=== PATIENT | male | born 1940 | race Caucasian/White ===

== ENCOUNTER 2016-10-16 23:37 | Inpatient (IN) | payer MEDICARE, OTHER ==
[~2016-10-16] VITALS: Ht 170.2 cm; Wt 50.4 kg
[~2016-10-16 23:37] MED LIST: CHOL200025 PO; COU5 PO; ESCI10TA PO; METH500T47 PO; OXYC-176 PO; TAM4 PO; TIOT18CA IH; WARF4TAB2 PO
[2016-10-17] VITALS (11 sets, daily range): BP systolic 85–105; BP diastolic 42–59; PULSE 70–94; RESP 16–20; O2SAT 91–97
--- NOTE | 2016-10-17 02:08 | NUR ---
Admission Pt admitted via transport team from [facility]. Pt able to walk but weak and has had several falls recently. Tele placed on pt, currently at SR 76. Partial bed bath given, pt soiled with urine. In white brief currently. Several abrasions noted. Small open area on coccyx. Camoseptine applied.
[2016-10-17] MEDS ORDERED: Polyethylene Glycol (PEG) 17 Gm Powder PO PRN (02:35)
[2016-10-17] MEDS ORDERED: Ondansetron 2 mg/mL 2 mL Inj IVPUSH PRN (02:35)
[2016-10-17] MEDS ORDERED: Alum-Mag Hydrox-Simeth 30 mL Suspension PO PRN (02:35)
[2016-10-17 03:06] LABS: Mean Corpuscular Hemoglobin 34.4 pg (27.0-35.0); Mean Corpuscular Volume 101.5 fL (81-100); Platelet Count 131 bil/L (150-400)
[2016-10-17] MEDS ORDERED: cefTRIAXone Inj 2,000 MG in Dextrose 5% Minibag Plus 50 ML IV ONE (03:20)
[2016-10-17 03:26] LABS: BASOPHILS % (AUTO) 0 % (0-3); EOSINOPHILS % (AUTO) 0 % (0-5); MONOCYTES % (AUTO) 2 % (4-12); NEUTROPHILS % (AUTO) 82 % (40-74)
[2016-10-17 03:49] LABS: Magnesium 1.7 mg/dL (1.6-2.6); Phosphorus 3.6 mg/dL (2.5-4.9)
[2016-10-17] MEDS: 0.9% Sodium Chloride 1,000 ML IV SCH ×3 (03:49→14:53)
--- NOTE | 2016-10-17 04:35 | PCM.HPMED ---
Subjective Date of Service Oct 17, 2016 Primary Provider: Admitting Physician: Rosaura Fang DO Primary Care Physician: Sarthak Rehman MD Attending Physician: Rosaura Fang DO Admit Status: From the Emergency Department, [facility] Telemetry Chief Complaint: Dizziness History of Present Illness: Claude Vidal is a 76-year-old man with past medical history significant for BPH, COPD, history of nephrolithiasis with multiple lithotripsies, and depression who is transferred from [facility] with the diagnosis of sepsis. Upon presentation to [facility] patient no longer meets sepsis criteria. Unclear of initial criteria met at [facility] from their documentation. Although patient is alert and oriented 3 he is a poor historian and seems to be slightly confused. Unclear of the baseline is no family is at the bedside. was present at the bedside initially but only for a very short time per nursing. The following is the history is able to obtain from the patient. He states that he presented to [facility] due to falling at home. He states that he did not hit his head or lose consciousness and was not lying on the floor for a long period. Per nursing staff the corroborates this story. Patient states he has been falling more frequently. He ambulates without assistive devices. He believes the falls are due to feeling dizzy and unstable. His dizziness is worse with quick movements and from transitioning from the seated to standing position. He has attempted to drink more water thinking this may help his dizziness. Patient denies any fever , chills, nausea, vomiting, abdominal pain, dysuria, hematuria, increased frequency, diarrhea, constipation, shortness of breath, cough, chest pain, or other musculoskeletal discomforts. The patient is significantly malnourished and when questioned he states that he has not recently lost weight and feels that he is eating just fine although his primary care provider told him he should start drinking Ensure. He denies any history of cancer. He also denies any recent medication changes or sick contacts. Patient's initial vitals on presentation to [facility] was temperature of 98.9F, blood pressure 102/40, respiratory rate 22, pulse oximetry 100%. Initial labs revealed a lactic acid of 2.4, potassium 3.7, creatinine kinase 1305 troponin I of 0.430, and a white blood cell count of 17.3 with a neutrophil predominance. He was initially treated with IV fluids and Levaquin at [facility] and then transferred to our facility as they had no telemetry monitored beds available. Review of Systems: Comprehensive review of systems was conducted with the patient and found to be negative except as noted above in HPI. Allergies Coded Allergies: No Known Allergies (Verified Allergy, 06/18/13) Home Medications Lexapro 10 mg daily Tamsulosin ER 0.4 mg daily Spiriva Percocet 5-325 every 4 hours when necessary PMH Past medical history obtained from [facility] documents along with my own history as follows: BPH COPD Nephrolithiasis requiring lithotripsy PE Depression Surgical History Past medical history obtained from [facility] documents along with my own history as follows: Lithotripsy Right hemicolectomy (this was obtained from [facility] documents as patient denied during my encounter) Family History Patient states his family is healthy. One asked specifics patient repeats that his family is healthy. Social History Hx Alcohol Use: No Hx Substance Use: No Hx Tobacco Use: No Living Arrangement: with Family ( but uncertain if she is there consistently) Exam Vital Signs Vital Signs (First) Date Time Temp Pulse Resp B/P Pulse Ox O2 Delivery O2 Flow Rate FiO2 10/17/16 01:26 36.2 75 16 99/48 97 Room Air Exam General: Cachectic, frail man in no acute distress. HEENT: Temporal wasting. External ears without defect. Pupils equal, round, and reactive to light and accommodation. Pale conjunctiva, anicteric sclerae, moist conjunctivae, and no lid lag. Oropharynx free of erythema and cobble stoning with moist mucosa. Neck: Supple with full range of motion. No jugular venous distension. No bruits. No lymphadenopathy or thyromegaly. Cardiovascular: Regular rate and rhythm with no murmurs, rubs, or gallops appreciated Pulmonary: Faint coarseness in bilateral bases. Normal respiratory effort with no use of accessory muscles. Abdomen: Bowel tones present. Scaphoid, nontender, minimally hard to palpation. No hepatosplenomegaly or masses appreciated. Extremities: No clubbing, cyanosis, edema, or lymphadenopathy appreciated. Skin: Normal temperature, turgor, and texture; no rash, ulcers, or subcutaneous nodules appreciated. Neurological: Cranial nerves grossly intact. Normal muscle strength, tone, and bulk. Reflexes, coordination, and sensory function within normal limits. No known gait impairment. Psychiatric: Normal mood and affect. Alert and oriented to person, place, and time. Lab and Diagnostics Labs Test 10/17/16 03:00 White Blood Count 14.4th/mm3 (3.8-10.1) Red Blood Count 2.70mil/mm3 (4.40-5.80) Hemoglobin 9.3g/dL (13.8-17.2) Hematocrit 27.4% (41.0-50.0) Mean Corpuscular Volume 101.5fL (81-100) Mean Corpuscular Hemoglobin 34.4pg (27.0-35.0) Mean Corpuscular Hemoglobin Concent 33.9% (32.0-37.0) Red Cell Distribution Width 13.1% (12.3-15.4) Platelet Count 131bil/L (150-400) Neutrophils (%) (Auto) 82% (40-74) Lymphocytes (%) (Auto) 0% (14-46) Monocytes (%) (Auto) 2% (4-12) Eosinophils (%) (Auto) 0% (0-5) Basophils (%) (Auto) 0% (0-3) Band Neutrophils % 15% (1-5) Metamyelocytes % 1% (0-0) Hematology Comments Lactic Acid Level 1.5mmol/L (0.4-2.0) X-Rays, CTs and MRIs Imaging from [facility]: Head without contrast Impression: 1. No acute intracranial abnormality. 2. Mild chronic white matter small vessel ischemic changes and cerebral volume loss. Dictated by: Valentín Zheng M.D. on 10/16/16 at 2202 Chest 1 view Impression: 1. Chronic interstitial opacities redemonstrated without consolidation or other findings to suggest pneumonia. Dictated by: Valentín Zheng M.D. on 10/16/16 at 2204 12-lead ECG Normal sinus rhythm Assessment & Plan Claude Vidal is a 76-year-old man with past medical history significant for BPH, COPD, history of nephrolithiasis with multiple lithotripsies, and depression who is transferred from [facility] with the diagnosis of sepsis after a ground-level fall. Leukocytosis, present on admission, active. Etiology unclear. Patient denies any symptoms aside from dizziness and ground- level fall. - WBC 14.4 with 82% neutrophils in 15% bands. - Procalcitonin 3.60 and CRP 20.8. - Blood cultures obtained and pending. - Urine culture unable to obtain. Bladder scan revealed inadequate amount of fluid to collect. - MRSA screen pending. - CT chest, abdomen, pelvis pending. - Broad-spectrum antibiotics include vancomycin and cefepime. Patient received dose of Levaquin at [facility]. Acute kidney injury, present on admission, active. Per [facility]'s notes patient's baseline creatinine is around 1.1 and currently is 2.26. - Outside records should be requested for more detailed kidney function. - IV fluids initiated. - Renal ultrasound ordered. - Bladder scan pending. If adequate urine and patient unable to urinate will proceed with in and out catheter to obtain sample for urinalysis. rhabdomyolysis, present on admission, active. - Creatinine kinase at [facility] 1305 repeat here 3246. - IV fluids given at [facility] and continued at 150 ml/hr. With an additional 500 mL bolus. If patient tolerates bolus will continue with additional but unclear of patient's ejection fraction. Ground-level fall, present on admission, active. - Patient denies loss of consciousness or hitting his head. Per nursing corroborates the story. - Orthostatic blood pressure to be completed in the morning. - CT of the brain at [facility] showed no acute intracranial abnormality. Elevated troponin of unknown significance, present on admission, active. Troponin I drawn at [facility] was 0.40. Repeat troponin T was 0.131. - Unclear etiology as EKG is unremarkable and shows normal sinus rhythm with no ST changes and patient denies any cardiac symptoms. - Trending troponins every 6 hours. - Low threshold to initiate heparin drip. - Consider echocardiogram in the morning. Sepsis diagnosed at [facility], not present on admission, resolved. - Patient transferred from [facility] with a diagnosis of cyst persists. The specific criteria met is not clear from records. Patient did have a respiratory rate of 22 but no specific mention of altered mentation or systolic blood pressure less than 100. - IV fluids initiated at 150 ml/hr. - We will monitor for signs of hemodynamic instability. Malnutrition, present on admission, active. Patient denies any recent weight loss and states he has always been thin. left prior to my history and examination. - Social work will need to be contacted in the morning. Living situation may be inappropriate but unclear as I was unable to contact the personally. - Encourage oral intake. - Consider dietitian consultation. PRN Medications - Acetaminophen as needed for mild pain/fever/headache - Bowel regimen as needed - Antiemetic as needed Med rec to be completed by day team. Patient is admitted under inpatient status with expected length of stay greater than 2 midnights due to severity of presenting symptoms, risk of adverse event, and complexity of treatment plan. Pain Evaluation: Adequate Pain Control GI Prophylaxis: Not indicated VTE Prophylaxis: Sub-Q Enoxaparin, SCDs Resuscitation Status: CPR: Attempt Resuscitation Attending Statement The patient was seen and examined together with house staff on 10/17/2016 and I agree with the history, exam and plan as outlined in the note above. TAMIKO ALLAN DO Oct 17, 2016 01:44 Rosaura Fang DO Oct 17, 2016 06:31
[2016-10-17 04:38] LABS: TROPONIN T 0.131 ug/L (0.0-0.011)
[2016-10-17] MEDS ORDERED: 0.9% Sodium Chloride 500 ML IV ONE (04:50)
[2016-10-17] MEDS ORDERED: Vancomycin Inj 750 MG in 0.9% Sodium Chloride 250 ML IV ONE (05:30)
--- NOTE | 2016-10-17 06:24 | PCM.CONPHA ---
Subjective Date of Service: Oct 17, 2016 Requesting Provider: TAMIKO ALLAN DO Dizziness, recent ground level falls History of Present Illness transferred in from [facility] for management of sepsis Reason for Pharmacy Consult: Vancomycin Dosing Objective Assessment/Plan Assessment/Plan A/ - 76 y/o male transferred in from [facility] for management of sepsis; but no longer met sepsis criteria at the time of admission. - Received one dose of Levaquin at [facility]. Afebrile, WBC: 14.4; blood cultures, urine, MRSA screen are pending - Vancomycin and cefepime ordered for empirical coverage - Wt: 44.6kg, ht: 183cm, BMI: 13.3 kg/m2, SCr: 2.26 mg/dL (baseline of 1.1) , estimated clearance in teen - P/ - Give vancomycin 750mg iv once and a random trough ordered @0500 10/18. Following doses will be determined after lab result Pharmacy will continue to follow and make necessary adjustment Thank you for consulting clinical pharmacy in the care of this patient Harrison Pedraza Oct 17, 2016 06:24
[2016-10-17] MEDS ORDERED: CHOL400T30 PO (07:21)
[2016-10-17] MEDS ORDERED: ONDA4TAB6 PO (07:24)
[2016-10-17] MEDS ORDERED: Cefepime Inj 1,000 MG in Dextrose 5% Minibag Plus 50 ML IV SCH (08:30)
[2016-10-17] MEDS: Vancomycin Dose per Pharmacist XX SCH (08:30)
--- NOTE | 2016-10-17 08:48 | DRSVH ---
PROCEDURE: CT CHEST, ABDOMEN AND PELVIS WITHOUT CONTRAST ([id number]) INDICATIONS: elevated CK TECHNIQUE: After the administration of oral contrast, 5 mm thick sections acquired from the lung apices to the s ymphysis pubis. 5 mm thick coronal and sagittal reformats acquired, with additional 7 mm coronal MIP reformats through the lungs. For radiation dose reduction, the following was used: automated expos ure control, adjustment of mA and/or kV according to patient size. COMPARISON: CT KUB 07/18/2015, 05/27/2012, 09/29/2011; CT IVP 08/27/2010 FINDINGS: Image quality: Excellent. CHEST: Lungs and pleura: Upper lobe predominant centrilobular emphysema. Bilateral subpleural interstitial lung disease. Mild thickening along the right major fissure. Bibasilar atelectasis. Small bilateral p leural effusions. Pleural calcifications also noted bilaterally. No pneumothorax. Central and periph eral airways are patent are normal in caliber. Mediastinum: Heart size is normal. No pericardial effusion. No mediastinal adenopathy by CT size c riteria. Thoracic aorta and central pulmonary arteries are normal in size. Esophagus is normal in c aliber. Small hiatal hernia. Chest wall: No axillary or supraclavicular adenopathy by size criteria. Thyroid gland appears rosario l. ABDOMEN: Solid organs: Liver and spleen are normal in size. Gallbladder is well distended with no definitive calcification.. Pancreas is normal in contours, calcifications evident compatible with chronic panc reatitis. No adrenal nodules. Both kidneys show staghorn calculi and air in the superior portion of the collecting systems. Mild right hydronephrosis. Peritoneum and bowel: Small and large bowel loops are gas filled with considerable stool in the colo n, and normal wall thickness. Postoperative changes of right hemicolectomy. Appendix is absent. Trace free fluid, no pneumoperitoneum. Nodes and vessels: No retroperitoneal or mesenteric adenopathy by size criteria. Aorta and inferior vena cava are normal in size. Miscellaneous: No ventral hernias. PELVIS: Genitourinary: Bladder wall thickness is normal. There are linear calcifications within the posterio r bladder wall centrally and on the right. Prostate is enlarged and extends into the bladder base. Miscellaneous: No inguinal hernias or adenopathy. Bones: No suspicious bony lesions. Multiple old right-sided rib fractures. No vertebral body carlos karmen fractures. Probable aseptic necrosis in the left femoral head anteriorly. IMPRESSION: 1. Bilateral staghorn calculi, air in the collecting systems bilaterally suggestive of bilateral pyel itis in absence of recent instrumentation. Mild right hydronephrosis with no apparent obstructing xu culi. Calcifications in the posterior bladder wall have been present previously. No associated soft t issue mass is identified. 2. Pulmonary emphysema and bilateral lower lobe atelectasis/infiltrate with small pleural effusions, appearing new since prior exam and possibly representing pneumonia. 3. Incidental findings including: Chronic pancreatitis, postoperative changes partial bowel resection in the right hemiabdomen, atherosclerosis without aneurysm, small hiatal hernia, prostatic enlargeme nt, nonspecific calcifications in the urinary bladder wall, old posttraumatic changes in the right ri b cage and probable aseptic necrosis of the left hip. Findings are concordant with the preliminary report. Dictated by: Lucio Wilhelm M.D. on 10/17/2016 at 8:21 Approved by: Lucio Wilhelm M.D. on 10/17/2016 at 8:46
[2016-10-17 09:43] LABS: Mean Corpuscular Hemoglobin 34.3 pg (27.0-35.0)
[2016-10-17 09:47] LABS: Platelet Count 104 bil/L (150-400)
--- NOTE | 2016-10-17 09:51 | DRSVH ---
PROCEDURE: X-RAY CHEST ONE VIEW, PORTABLE ([id number]) INDICATIONS: SOB TECHNIQUE: One view of the chest was acquired. COMPARISON: 10/16/2016, 11/24/2015 FINDINGS: Surgical changes and devices: None. Lungs and pleura: No pleural effusions or pneumothorax. Mild interstitial infiltrate in the lower lo bes bilaterally, no focal consolidation. Appearance is slightly more prominent. There is pulmonary hy perexpansion suggesting COPD. Mediastinum: Mediastinal contours appear normal. Heart size is normal. Aortic calcifications. Bones and chest wall: No suspicious bony lesions. Several chronic appearing right-sided rib fracture deformities fifth through eighth ribs. Overlying soft tissues appear unremarkable. IMPRESSION: 1. Probable chronic obstructive pulmonary disease and interstitial infiltrate that is likely chronic but superimposed pneumonitis cannot be excluded. 2. Remote multiple right-sided rib fractures. Dictated by: Lucio Wilhelm M.D. on 10/17/2016 at 9:46 Approved by: Lucio Wilhelm M.D. on 10/17/2016 at 9:49
[2016-10-17 10:13] LABS: BASOPHILS % (AUTO) 0 % (0-3); EOSINOPHILS % (AUTO) 0 % (0-5); MONOCYTES % (AUTO) 3 % (4-12); NEUTROPHILS % (AUTO) 90 % (40-74)
[2016-10-17] MEDS: Heparin 5,000 Unit/mL Inj SUBQ SCH ×3 (10:23→23:42)
[2016-10-17] MEDS ORDERED: Magnesium Sulf 4 Gm/100 mL H2O 4 GM in IV Premix 1 EACH IV ONE (10:40)
[2016-10-17] MEDS ORDERED: Magnesium Sulf 2 Gm/50mL Water 2 GM in IV Premix 1 EACH IV ONE (10:40)
[2016-10-17] MEDS ORDERED: Potassium Chloride 20 mEq SR Tablet PO ONE ×2 (10:40)
[2016-10-17 11:53] LABS: APPEARANCE,URINE SLIGHTLY CLOUDY (CLEAR,HAZY); COLOR,URINE STRAW (YELLOW); PH,URINE 5.5 (5.0-8.0)
[2016-10-17 11:54] LABS: OCCULT BLOOD,URINE LARGE (NEGATIVE); UROBILINOGEN,URINE NORMAL (NORMAL)
--- NOTE | 2016-10-17 13:25 | CONS ---
[address] [address] CONSULTATION REPORT PATIENT: JERI NORWOOD : 1940 MR#: [id number] ADMIT: 10/17/2016 JOB ID: [id number] DATE OF SERVICE: 10/17/[address] Alva for this timely consult. REASON FOR CONSULTATION: Sepsis in an elderly cachectic gentleman. HISTORY OF PRESENT ILLNESS: The patient is a 76-year-old gentleman in chronically ill health. He is a little spare in his history of the present illness in that he provides little in the way of details but basically he has been growing weaker and weaker and losing more and more weight month by month. It is unclear exactly what the precipitating cause of this progressive and severe weight loss, but I did call his primary care doctor, Dr. Sarthak Rehman, in [place], to discuss the situation. Dr. Rehman states the patient has severe underlying COPD as well as recurrent urinary tract infections secondary to renal stone disease and has been slowly dwindling for an extended period of time. He also states the patient does not come to the clinic very often and the current levels of weight loss are new for the patient, though he has been getting thinner and thinner for a long period of time. The patient tells us that his problems began a couple days ago when he started falling. Eventually, he fell and could not get up and spent some extended period of time on the floor before help was summoned. He was taken to [facility] and they could not keep him there because they did not have an available telemetry bed, so he was sent here overnight. It was clear following his admission that he had leukocytosis as well as elevated procalcitonin, CRP and creatinine above baseline. This prompted cultures being obtained and he was started on broad-spectrum antibiotics with cefepime for possible sepsis of unknown source. The patient tells us this morning he is not feeling that bad compared to his baseline. He tells us he has been getting weaker and weaker and, when asked specifically about how far he can walk, he tends to evade the question, but it sounds like very short distances at best. He is also chronically short of breath and it is unclear how much worse that is at this time. He states he has had no recent fevers, chills, or sweats. No significant headache, sore throat, or change in his chronic respiratory problems. No nausea, vomiting. He denies dysuria or urgency, though he notes he cannot produce a urine sample here. The patient notes that his arms and legs are progressively becoming thinner and weaker, but this is a chronic process. PAST MEDICAL HISTORY: 1. COPD secondary to long history of smoking. 2. BPH. 3. Nephrolithiasis, with many procedures for stone removal and bilateral staghorn calculi. 4. History of pulmonary embolism. 5. History of right partial hemicolectomy, which the patient says he has no recollection. 6. Chronic pancreatitis. 7. Depression. SOCIAL HISTORY: The patient is an ex-smoker, having quit about 15 years ago. He says he has a little wine each night with dinner. We do not have anyone else to corroborate this history. 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 FAMILY HISTORY: Negative for TB in first and second-degree relatives. REVIEW OF SYSTEMS: Was done. No significant fevers, chills or sweats. He has progressive and dramatic weight loss over what sounds like years, but accelerating more recently. No significant headache. No visual change. No sores in the mouth. No sore throat. Denies neck complaints. Short of breath at all times but no worse than baseline. No hemoptysis. No nausea, vomiting, diarrhea. Denies urgency, frequency, dysuria or pneumaturia. States his legs are weak and getting worse. Remainder of the review of systems negative. PHYSICAL EXAMINATION: Reveals an afebrile gentleman, temperature 37, pulse 70, respiratory rate 20, blood pressure 103/59. He is saturating surprisingly well 95% on room air. He looks cachectic to the point of almost being skeletal. He has dramatic temporal wasting, hollowed out supraclavicular fossae bilaterally, and really skeletal skin and bones appearance. His BMI is 13. His weight 45 kg despite a height of 183 cm. The patient's mental status is generally intact. He is alert and oriented x3, but there are gaps in his history about what has been happening recently and why he had hemicolectomy and other issues. Examination of the head reveals no trauma but there is severe temporal wasting. Eyes with pale conjunctivae. No scleral icterus. Oral cavity, no thrush or hairy leukoplakia. Neck reasonably supple without adenopathy or JVD. Supraclavicular fossa as mentioned, are dramatically sunken. Lungs: Sitting up, with poor air flow bilaterally and some crackles at the bases. Cardiac tones regular rate and rhythm without murmur. Abdomen without hepatosplenomegaly. His abdomen is very thin. There is no ascites. I cannot palpate a tender liver. He has no flank tenderness, though he does wince when his left flank is percussed. He denies that it is painful. He is wearing a diaper and, so far, has produced apparently no urine. No inguinal adenopathy. No cervical adenopathy. Legs and arms are wasted. There is some minimal venous stasis changes over the shins bilaterally. No peripheral edema. His strength in the extremities is about 4+/5 diffusely. Poor capillary refill is present in the feet. Peripheral pulses are diminished. No sensory abnormalities noted. LABORATORIES: Include white count 14,000, platelet count 131, with 15% bands. Creatinine is 2.26, and his baseline is thought to be about 1.5. LFTs are normal except for an AST of 109, and ALT is 32. CPK 3246. CRP is 21. Procalcitonin 3.6. Micro studies include negative blood cultures here, but they were just drawn at 3 a.m., so of course, we have no results. I called the [facility] to get more details. They did not do any blood cultures. They did do a urine culture and it was just plated a few hours ago, so there is no result. We do not have a urinalysis here or urine culture as the patient cannot provide either. IMAGING: Includes a CT of the chest, abdomen, and pelvis, which I reviewed myself on the view screen. It shows pulmonary emphysema which is mild to moderate, but not severe. I do not see any pulmonary infiltrates.Abd with staghorn calculi-?air in collecting system IMPRESSION: Likely septic, with urinary source most likely. Also worried about possible alcohol related issues. Has mild rhabdo Recomendations: DC cefepime, start Zosyn Await cultures Consider urology eval Additional hx needed Note that last third of dication lost-reconstructed in am INCOMPLETE DICTATION: Dictation ends at this point. MTDD
--- NOTE | 2016-10-17 14:45 | NUR ---
NUTRITION ASSESSMENT Assess: 76 YO M admitted for sepsis, rhabdomyolysis,and GLF. Pt severely underweight with BMI of 13.3. Pt appears to have good PO intake for 1 meal so far. Per rounds, pt a poor historian and lives with his . PMHX: BPH, COPD, nephrolithiasis, depression, R hemicolectomy, PE. DIET: General. PO intake 95% X 1 meal. LABS: K+ 3.3, BUN 40, Cr 2.21, Glu 113, Ca 7.4, AST 125, Alb 2.0 MEDICATIONS: Reviewed. NaCl. GI: No BM noted. SKIN: Medial sacral PU. No wound eval yet. ANTHROPOMETRICS: Wt: 44.6 kg, BMI 13.3 kg/m2 = severely underweight. Admit wt: 44.6 kg. Per EMR, wt appears to have progressively decreased over several years since at least 2011. ESTIMATED NEEDS: WT GAIN/WOUNDS/COPD Calories: 6822-4388 kcal/day (35-40 kcal/kg BW) Protein: 121-146 g/day (1.5-1.8 g/kg IBW) NUTRITION DIAGNOSIS: 1) Inadequate oral intake related to decreased ability to consume sufficient energy as evidenced by underweight BMI 13.3 kg/m2. INTERVENTION: 1) Will add nutrition supplements to encourage weight gain. Will consider adding snacks between meals if pt's PO intake is poor. 2) If pt appropriate, will consider high protein/high calorie nutrition education. Will continue to monitor. MONITOR/EVALUATE: PO intake, diet tolerance, labs, GI/nutrition status. Follow per moderate nutrition risk guidelines.
[2016-10-17] MEDS: Multivit-Miner-Folic Acid-Iron Tablet PO SCH (14:52)
--- NOTE | 2016-10-17 16:18 | NUR ---
Social Work Note: Initial Assessment/Multidisciplinary Rounds Data& Assessment: EMR reviewed. Claude Vidal is a 76 year old male admitted on 10/17/2016 for sepsis. Pt was discussed in AM rounds this morning. Per MD, pt is malnourished and has had multiple falls recently. MD did share concerns about pt ability for self care. After further discussion between MD and pt and pt , it was discovered that pt cares for their grandson in [place] 3 days a week and those days, pt is alone at home. It was also discovered that pt brother a little over one year ago and pt has struggled with alcohol dependence since that time which could explain pt condition at this time. SW received order to speak with pt regarding extra support and resources surrounding his alcohol intake and loss of his brother. SW met with pt and pt at bedside. Pt was tired and requested that SW return to speak with him another time, but gave permission for SW to speak with his about baseline information. Pt lives in [place] with his in a one story home. Pt confirmed that she is not home three days a week, but explained normally pt is completely independent at home with all ADL's, and pt continues to drive. Pt uses a cane at baseline but does have a FWW available to use as well. Pt did share she has had recent concerns about pt balance, and that sometimes she will come home and find out pt has had a fall but did not tell her. Pt requested information on Life Alert which was provided. Pt also explained they have LTC insurance and she is interested in looking into private caregiving for the days she is caring for their grandson. Senior Resource Guidebook provided and caregiving information as well as Meals on Meals information reviewed with pt . Pt plans to also look into private pay Meals on Wheels to ensure pt is getting supplemental meals on top of his regular three meals a day which pt states that he eats and pt states that she ensures the meal prep is completed and groceries are in the home. Pt states pt has had [facility] RN and PT in the past and would like their services again in order to increase strength and balance for pt. Pt also states that pt has been to in rehab in [place] 13 years ago and she reflects on the fact that pt may need more intensive PT at time of discharge. Pt is not a . Pt has DPOA/AD paperwork completed and pt brought in a copy to be scanned into pt chart. Pt denies any other needs at this time. SW to follow up with pt regarding substance use assessment and support resources. SW to follow for PT evaluation and MD orders. Pt provided with Discharge Planning Checklist Booklet. SW to continue to follow. Plan: Pt is not medically ready for discharge at this time. Caregiving, Life Alert and Meals on Wheels information provided. SW to follow for PT evaluation and MD orders. Pt provided with Discharge Planning Checklist Booklet. SW to continue to follow. MEAGAN Marrero Addendum: 10/17/16 at 1630 by JUAN CAROLINA Amended: Links added.
[2016-10-17 16:42] LABS: TROPONIN T 0.153 ug/L (0.0-0.011)
[2016-10-17] MEDS: Piperacillin-Tazo 3.375 Gm Inj 3.375 GM in Dextrose 5% Minibag Plus 50 ML IV SCH ×2 (17:12→23:41)
--- NOTE | 2016-10-17 19:18 | PCM.PNMED ---
Subjective Date of Service Oct 17, 2016 Subjective Claude Vidal is a 76-year-old man with past medical history significant for BPH, COPD, history of nephrolithiasis with multiple lithotripsies, and depression who is transferred from [facility] with the diagnosis of sepsis. Upon presentation to [facility] patient no longer meets sepsis criteria. Unclear of initial criteria met at [facility] from their documentation. Although patient is alert and oriented 3 he is a poor historian and seems to be slightly confused. Unclear of the baseline as no family is at the bedside. was present at the bedside initially but only for a very short time per nursing. The following is the history as able to obtain from the patient. He states that he presented to [facility] due to falling at home. He states that he did not hit his head or lose consciousness and was not lying on the floor for a long period. Per nursing staff the corroborates this story. Patient states he has been falling more frequently. He ambulates without assistive devices. He believes the falls are due to feeling dizzy and unstable. His dizziness is worse with quick movements and from transitioning from the seated to standing position. He has attempted to drink more water thinking this may help his dizziness. Patient denies any fever , chills, nausea, vomiting, abdominal pain, dysuria, hematuria, increased frequency, diarrhea, constipation, shortness of breath, cough, chest pain, or other musculoskeletal discomforts. The patient is significantly malnourished and when questioned he states that he has not recently lost weight and feels that he is eating just fine although his primary care provider told him he should start drinking Ensure. He denies any history of cancer. He also denies any recent medication changes or sick contacts.Patient's initial vitals on presentation to [facility] was temperature of 98.9F, blood pressure 102/ 40, respiratory rate 22, pulse oximetry 100%. Initial labs revealed a lactic acid of 2.4, potassium 3.7, creatinine kinase 1305 troponin I of 0.430, and a white blood cell count of 17.3 with a neutrophil predominance. He was initially treated with IV fluids and Levaquin at [facility] and then transferred to our facility as they had no telemetry monitored beds available. Today, Claude is resting in bed comfortably and in no acute distress. He mentions feeling much better than yesterday. He is having some shortness of breath, but no chest pain, cough, fevers, chills, abdominal pain, diarrhea or constipation. He has been unable to produce urine and has a history of chronic UTI and kidney stones. He mentions he's unsure how long he was down on the ground for after his fall, but mentions it was probably less than an hour. Exam Vital Signs Vital Sign - Last Date Time Temp Pulse Resp B/P Pulse Ox O2 Delivery O2 Flow Rate FiO2 10/17/16 03:48 36.8 85 18 105/47 95 Room Air Intake and Output 10/16/16 10/16/16 10/17/16 Cumulative From/Thru 15:00 23:00 07:00 10/17/16 01:26 - 10/17/16 06:27 Intake Total 693 ml 693 ml Balance 693 ml 693 ml Intake IV Total 693 ml 693 ml Exam General: Cachectic, frail man in no acute distress. HEENT: Temporal wasting. External ears without defect. Pupils equal, round, and reactive to light and accommodation. Pale conjunctiva, anicteric sclerae, moist conjunctivae, and no lid lag. Neck: Supple with full range of motion. No jugular venous distension. No bruits. No lymphadenopathy or thyromegaly. Cardiovascular: Regular rate and rhythm with no murmurs, rubs, or gallops appreciated Pulmonary: Course breath sounds in bilateral bases. Normal respiratory effort with no use of accessory muscles. Abdomen: Bowel tones present. Scaphoid, nontender, minimally hard to palpation. No hepatosplenomegaly or masses appreciated. Extremities: No clubbing, cyanosis, edema Skin: Normal temperature, turgor, and texture; no rash, ulcers, or subcutaneous nodules appreciated. Neurological: Cranial nerves grossly intact. Normal muscle strength, tone, and bulk. Reflexes, coordination, and sensory function within normal limits. No known gait impairment. Psychiatric: Normal mood and affect. Alert and oriented to person, place, and time. IVs and Medications Medications Reviewed: Medications were reviewed in detail Lab and Diagnostics Laboratory Tests Test 10/17/16 11:32 Urine Color Straw Urine Appearance Slightly cloudy Urine pH 5.5 Urine Specific [place] 1.020 Urine Protein 100mg/dL Urine Glucose (UA) Negativemg/dL Urine Ketones Negativemg/dL Urine Occult Blood Large Urine Nitrite Negative Urine Bilirubin Negative Urine Urobilinogen Normalmg/dL Urine Leukocyte Esterase Small Urine RBC >50/hpf Urine WBC 11-50/hpf Urine Epithelial Cells Occasional/hpf Urine Crystals None seen Urine Bacteria Moderate/hpf Urine Hyaline Casts None/lpf Urine Granular Casts None seen Urine Waxy Casts None seen Urine Red Blood Cell Casts None seen Urine White Blood Cell Casts None seen Urine Mucus None seen Urine Trichomonas None seen Urine Yeast None Urinalysis Comment None Urine Culture Reflexed Indicated Item Value Date Time White Blood Count 14.4 th/mm3 H 10/17/16 0300 White Blood Count 15.2 th/mm3 H 10/17/16 0932 Hemoglobin 9.3 g/dL L 10/17/16 0300 Hemoglobin 9.9 g/dL L 10/17/16 0932 Hematocrit 27.4 % L 10/17/16 0300 Hematocrit 29.2 % L 10/17/16 0932 Mean Corpuscular Volume 101.5 fL H 10/17/16 0300 Mean Corpuscular Volume 101.0 fL H 10/17/16 0932 Platelet Count 131 loretta/L L 10/17/16 0300 Platelet Count 104 loretta/L L 10/17/16 0932 Sodium Level 134 mEq/L 10/17/16 0932 Potassium Level 3.3 mEq/L L 10/17/16 0932 Chloride Level 104 mEq/L 10/17/16 0932 Carbon Dioxide Level 15 mmol/L L 10/17/16 0932 Blood Urea Nitrogen 40 mg/dL H 10/17/16 0932 Creatinine 2.21 mg/dL H 10/17/16 0932 Glucose Level 113 mg/dL H 10/17/16 0932 Estimat Glomerular Filtration Rate 31 mL/min 10/17/16 0932 Lactic Acid Level 1.6 mmol/L 10/17/16 0932 Calcium Level 7.4 mg/dL L 10/17/16 0932 Albumin 2.0 g/dL L 10/17/16 0932 Total Creatine Kinase 3246 U/L H 10/17/16 0300 Total Creatine Kinase 1646 U/L H 10/17/16 1535 Troponin T 0.177 ug/L *H 10/17/16 0932 Troponin T 0.153 ug/L *H 10/17/16 1535 Aspartate Amino Transf (AST/SGOT) 125 U/L H 10/17/16 0932 Alanine Aminotransferase (ALT/SGPT) 40 U/L 10/17/16 0932 Aspartate Amino Transf (AST/SGOT) 109 U/L H 10/17/16 0300 Alanine Aminotransferase (ALT/SGPT) 32 U/L 10/17/16 0300 Troponin T 0.131 ug/L *H 10/17/16 0300 C-Reactive Protein 20.8 mg/dL H 10/17/16 0300 Procalcitonin 3.60 ng/mL H 10/17/16 0300 Glucose Level 115 mg/dL H 10/17/16 0300 Creatinine 2.26 mg/dL H 10/17/16 0300 Blood Urea Nitrogen 38 mg/dL H 10/17/16 0300 Carbon Dioxide Level 17 mmol/L L 10/17/16 0300 Chloride Level 104 mEq/L 10/17/16 0300 Potassium Level 3.6 mEq/L 10/17/16 0300 Sodium Level 135 mEq/L 10/17/16 0300 Lactic Acid Level 1.5 mmol/L 10/17/16 0300 Potassium Level 3.9 mEq/L 10/17/16 1535 Result Diagram: 10/17/16 0300 10/17/16 030 Microbiology Urine Cultures Pending X-Rays, CTs and MRIs 10/17/16 PROCEDURE: CT CHEST, ABDOMEN AND PELVIS WITHOUT CONTRAST ([id number]) IMPRESSION: 1. Bilateral staghorn calculi, air in the collecting systems bilaterally suggestive of bilateral pyelitis in absence of recent instrumentation. Mild right hydronephrosis with no apparent obstructing calculi. Calcifications in the posterior bladder wall have been present previously. No associated soft tissue mass is identified. 2. Pulmonary emphysema and bilateral lower lobe atelectasis/infiltrate with small pleural effusions, appearing new since prior exam and possibly representing pneumonia. 3. 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 Dictated and approved by: Lucio Wilhelm M.D. on 10/17/2016 at 8:21 Imaging from [facility]: Head without contrast Impression: 1. No acute intracranial abnormality. 2. Mild chronic white matter small vessel ischemic changes and cerebral volume loss. Dictated by: Valentín Zheng M.D. on 10/16/16 at 2202 Chest 1 view Impression: 1. Chronic interstitial opacities redemonstrated without consolidation or other findings to suggest pneumonia. Dictated by: Valentín Zheng M.D. on 10/16/16 at 2204 12-lead ECG Normal sinus rhythm Assessment & Plan Claude Vidal is a 76-year-old man with past medical history significant for BPH, COPD, history of nephrolithiasis with multiple lithotripsies, and depression who is transferred from [facility] with the diagnosis of sepsis after a ground-level fall. Leukocytosis, present on admission, active. Etiology unclear. Patient denies any symptoms aside from dizziness and ground- level fall. - On admisison, WBC 14.4 with 82% neutrophils in 15% bands. Procalcitonin 3.60 and CRP 20.8. - Blood cultures obtained and pending. - Urine culture, MRSA screen pending - CT chest, abdomen, pelvis results as above - Broad-spectrum antibiotics include vancomycin and zosyn. Patient received dose of Levaquin at [facility]. Acute kidney injury, present on admission, active. Per [facility]'s notes patient's baseline creatinine is around 1.1 and currently is 2.26. - Outside records should be requested for more detailed kidney function. - Continue IV fluids 80 mL/hr - Chest, abdomen and pelvis CT results as above. - Urine culture pending Rhabdomyolysis, present on admission, active. - Creatinine kinase at [facility] 1305 repeat on admission 3246. Currently now down trending. - IV fluids given at [facility] and continued at 150 ml/hr. With an additional 500 mL bolus. - IV fluids at 150 mL/hr Ground-level fall, present on admission, active. - Patient denies loss of consciousness or hitting his head. Per nursing corroborates the story. - Orthostatic blood pressure to be completed in the morning. - CT of the brain at [facility] showed no acute intracranial abnormality. Elevated troponin of unknown significance, present on admission, active. Troponin I drawn at [facility] was 0.40. Repeat troponin T was 0.131. - Unclear etiology as EKG is unremarkable and shows normal sinus rhythm with no ST changes and patient denies any cardiac symptoms. - Low threshold to initiate heparin drip. - Consider echocardiogram in the morning. Sepsis diagnosed at [facility], not present on admission, resolved. - Patient transferred from [facility] with a diagnosis of cyst persists. The specific criteria met is not clear from records. Patient did have a respiratory rate of 22 but no specific mention of altered mentation or systolic blood pressure less than 100. - IV fluids at 150 mL/hr - We will monitor for signs of hemodynamic instability. Severe Protein Calorie Malnutrition, present on admission, active. Patient denies any recent weight loss and states he has always been thin. Extensive daily alcohol use - Living situation may be inappropriate but unclear as I was unable to contact the personally. - Encourage oral intake. - [facility] Certified Concierge consulted. Alcohol Withdrawl, present on admission, active Per , patient has been drinking bottles of wine daily for at least 1.5 years. Unclear if patient has missed days or not. - Initiated CIWA protocol - Valium as needed for withdrawal symptoms. COPD, chronic - Started home spiriva Depression, chronic - Started Home Lexapro BPH - Started home tamsulosin Disposition: Likely greater than 2 midnights depending on patient clinical status. Will require improvement in kidney function, improvement in creatinine kinase and treatment of urinary tract infection. GI Prophylaxis: Not indicated VTE Prophylaxis: Sub-Q Enoxaparin, SCDs Resuscitation Status: CPR: Attempt Resuscitation Attending Statement The patient was seen and examined together with Dr. Cabrera on 10/17/16 and I have added additional information to the note above. Kin Cabrera DO Oct 17, 2016 06:32 Jennifer Ferrara DO Oct 21, 2016 17:58
--- NOTE | 2016-10-17 19:20 | NUR ---
Vitals/Skin/Rocha Patient a/o x 3, denies pain, nausea or sob. SBP 80-90's patient asymptomatic but remained on bedrest. Patient had redness on buttock, tilted q 2hr. Patient taking diet fair. Patient unable to void, rocha cath placed per MD orders, patient had immediate creamy pink tinged uop. U/A sent.
--- NOTE | 2016-10-17 21:38 | NUR ---
Critical lab Notified of 2/ blood culture specimens positive for gram negative rods at 0910. Dr. Marc tillman, no new orders at this time. Addendum: 10/18/16 at 0352 by ANGELINA LAO RN REVISION Dr. Eller, not Dr. Shin, was notified of positive blood cultures. Addendum: 10/18/16 at 0636 by ANGELINA LAO RN Systolic BP mid 90's-100's, bed rest with good bed mobility. LS diminished at bases, maintains 96% on room air. Denies pain/discomfort. Calmoseptine applied to open area on medial buttocks. Q2 turns. Bell cath draining cloudy pink urine. No BM this shift. No new orders per MD re: positive blood cultures. Care continues.
[2016-10-18] VITALS (10 sets, daily range): BP systolic 95–108; BP diastolic 49–59; PULSE 68–84; RESP 14–20; O2SAT 94–100
[2016-10-18] MEDS: 0.9% Sodium Chloride 1,000 ML IV SCH ×2 (01:07→09:18)
[2016-10-18 04:42] LABS: BASOPHILS % (AUTO) 0.1 % (0-3); EOSINOPHILS % (AUTO) 0.3 % (0-5); MONOCYTES % (AUTO) 4.7 % (4-12); Mean Corpuscular Hemoglobin 33.6 pg (27.0-35.0); Mean Corpuscular Volume 100.7 fL (81-100); NEUTROPHILS % (AUTO) 90.5 % (40-74); Platelet Count 101 bil/L (150-400)
[2016-10-18] MEDS ORDERED: Vancomycin Serum Trough XX ONE (05:00)
[2016-10-18] MEDS ORDERED: 0.9% Sodium Chloride 250 ML IV ONE (06:55)
[2016-10-18] MEDS: Vancomycin Dose per Pharmacist XX SCH (08:29)
[2016-10-18] MEDS: Tiotropium 18mcg/Cap 5 Capsule Inhaler Kit INHALATION SCH (08:36)
[2016-10-18] MEDS: Multivit-Miner-Folic Acid-Iron Tablet PO SCH (08:37)
[2016-10-18] MEDS: Heparin 5,000 Unit/mL Inj SUBQ SCH ×3 (08:38→23:36)
--- NOTE | 2016-10-18 09:02 | PROG NOTE ---
[address] [address] PROGRESS NOTE PATIENT: JERI NORWOOD : 1940 MR#: [id number] ADMIT: 10/17/2016 JOB ID: [id number] DATE: 10/18/2016 INFECTIOUS DISEASE FOLLOWUP NOTE: REASON FOR FOLLOWUP: E. coli bacteremia likely of urinary source. INTERVAL HISTORY: This morning the patient says he is feeling okay. He denies fevers, chills, or significant cough. He has no nausea or vomiting. He reports he has a poor appetite and perhaps some mild left flank tenderness. I spoke at length to the patient's son Yasir. Yasir relates that his father was an alcoholic and with heavy alcohol consumption until about a decade ago when he was admitted to the [facility] for pneumonia and underwent protracted DTs, which turned life-threatening. He survived and was abstinent from alcohol for about nine years. Recently, his brother , and it is reported that he has been stashing alcohol in the garage and back to drinking. PHYSICAL EXAMINATION: Reveals a gaunt gentleman. Temperature 36.4, pulse 82, respiratory rate 20, blood pressure 106/59. He is saturating well on room air. He is conversational and oriented. He remains obviously exceptionally thin, with his BMI of 13. Oral cavity without change and without thrush. Lungs: Some scattered bilateral rhonchi and fairly poor air flow bilaterally but nothing new. Cardiac tones without new murmur. Abdomen nontender, very thin. He does have some mild left flank tenderness and perhaps even some right flank tenderness but is notable on the left. No new skin rashes noted. LABORATORY STUDIES: White blood count 9800, platelet count 100,000. Creatinine 2.12. LFT with AST 67. CPK 544. Procalcitonin is 4 today. Albumin is 1.6. Micro includes blood cultures growing E coli. Urine is interestingly negative. IMAGING: Recall that our imaging showed bilateral staghorn calculi with air in the collecting system bilaterally. IMPRESSION: This patient has Escherichia coli bacteremia secondary to complex urinary tract infection with underlying bilateral staghorn calculi. He also has relapsed alcoholism and profound malnutrition. There is evidence of alcoholic hepatitis at this point, with an AST about double the ALT, and I suspect the alcoholism, liver injury and now nutrition are closely related issues. Note that the patients typically when they reached a body mass index around 11 or 12, with women able to tolerate a little lower body mass index than men before ensues from malnutrition, and this patient approaches those levels. RECOMMENDATIONS: 1. Will continue with Zosyn while we await the susceptibilities on the E coli. 2. Urology should be consulted because of his bilateral staghorn calculi with air. 3. The patient will need outpatient efforts to treat his alcoholism and malnutrition, and possible underlying depression related to the of his brother and other life issues. 4. This case discussed with a community engagement representative of the team, as well as the team taking care of the patient, as well as the patient's son.
[2016-10-18] MEDS: Piperacillin-Tazo 3.375 Gm Inj 3.375 GM in Dextrose 5% Minibag Plus 50 ML IV SCH ×3 (09:18→23:36)
--- NOTE | 2016-10-18 11:44 | NUR ---
NUTRITION FOLLOW-UP: Assess: 76 YO M admitted for sepsis, rhabdomyolysis, and GLF. Pt severely underweight with BMI of 13.3. He reported that at home he eats well. His appetite is decreased because he is in the hospital. He reported that he tries to eat lots of protein at home and fresh fruit. He has begun to drink Ensure with all his meals. Per MD notes, pt has history of etoh abuse and family believes that the pt is drinking again. Reported UBW is ~60kg (25% wt loss x1 year = severe wt loss). PMHX: BPH, COPD, nephrolithiasis, depression, R hemicolectomy, PE. DIET: General. PO intake 40-95% LABS: CO2 16, BUN 48, truck bracer 2.12, Glu 107, Ca 7.7, AST 67, Alb 1.6 MEDICATIONS: Reviewed. , thiamine GI: BMx1 10/17 SKIN: Medial sacral PU. No wound eval yet. Visible muscle/fat loss ANTHROPOMETRICS: Wt: 44.6 kg, BMI 13.3 kg/m2 = severely underweight. Admit wt: 44.6 kg. IBW: 80kg UBW ~60kg, 25% wt loss x1 year= severe ESTIMATED NEEDS: WT GAIN/WOUNDS/COPD Calories: 9357-4227 kcal/day (35-40 kcal/kg BW) Protein: 121-146 g/day (1.5-1.8 g/kg IBW) NUTRITION DIAGNOSIS: 1) Inadequate oral intake related to decreased ability to consume sufficient energy as evidenced by underweight BMI 13.3 kg/m2. 2) Severe pro/kcal malnutrition related to poss alcoholism and COPD as evidence by BMI of 13.3kg/m2, ~25% wt loss x1 year and severe muscle/fat loss INTERVENTION: 1) Spoke with pt regarding his wt and his appetite. Discussed the importance of gaining wt and making sure that he is consuming adequate kcal/pro. Discussed eating smaller/more frequent meals when his appetite is decreased and high kcal/pro food sources. Provided high kcal/pro handout and high kcal/pro recipe book. Pt was engaged and expressed understanding 2) Will add Vanilla Ensure on all trays per pt preference. Pt requested no milk on trays since he is receiving Ensure. MONITOR/EVALUATE: PO intake, diet tolerance, wt, labs, GI/nutrition status. Follow per high nutrition risk guidelines.
--- NOTE | 2016-10-18 17:21 | DRSVH ---
[facility] [address] [place] [address] Echocardiogram Report Name: JERI NORWOOD FStudy Date: Height: 72 in Hospital Exam Location: [facility] Weight: 98 lb Gender: Male BSA: 1.6 m2 : 1940 Age: 76 yrs BP: 106/59 mmHg Reason For Study: CAD Ordering Physician: HOSPITALIST [facility] Performed By: Billie Sheridan Referring Physician: Dr. Sarthak Rehman Interpretation Summary The study quality was technically difficult. The left ventricle is normal in size. The ejection fraction is estimated to be 45-50%. There is apical inferior wall hypokinesis. Inferolateral hypokinesis Borderline right ventricular enlargement. There is no significant valvular heart disease. Procedure: A two-dimensional transthoracic echocardiogram with color flow and Doppler was performed. The study quality was technically difficult. There is no prior echocardiogram noted for this patient. The heart rate ranged between 72-86 bpm during the study. Left Ventricle: The left ventricle is normal in size. There is normal left ventricular wall thickness. The ejection fraction is estimated to be 45-50%. There is apical inferior wall hypokinesis. Inferolateral hypokinesis. Assessment of diastolic parameters indicates normal left ventricular diastolic function and normal filling pressures. Right Ventricle: Borderline right ventricular enlargement. Atria: The left atrium is moderately dilated. The right atrium is mildly dilated. Mitral Valve: The mitral valve is grossly normal. There is mild mitral annular calcification. There is no mitral regurgitation noted. Aortic Valve: The aortic valve is trileaflet. The aortic valve opens well. The aortic valve is mildly calcified. There is no hemodynamically significant valvular aortic stenosis. No aortic regurgitation is present. Tricuspid Valve: The tricuspid valve is normal in structure and function. There is a trace or physiologic amount of tricuspid regurgitation. Pulmonic Valve: The pulmonic valve is not well visualized. Great Vessels: The aortic root is mildly dilated. The inferior vena cava was not visualized. Pericardium/ Pleura There is no pericardial effusion. There is no pleural effusion. MMode/2D Measurements & Calculations LVIDd: 4.3 cm LA dimension: 2.9 cm RA long axis Ao root diam LVIDs: 3.0 cm FS: 29.6 % LA A2 area: 21.6 cm RA area Aortic Jxn: 2.5 cm IVSd: 0.84 cm LA A4 area: 21.8 cm Ao Arch Diam (Prox LVPWd: 0.77 cm LA length (vol) : 17.3 cm Trans): 2.5 cm RA vol LA vol: 78.1 ml : 57.5 ml LA vol index RA : 36.6 mm/ : 49.7 ml/m2 RVDd major : 4.6 cm LV rose. diameter/BSA LV sys. diameter/BSA RVD1 (basal) RVD2 (mid): 3.1 cm (cm/m^2): 2.7 (cm/m^2): 1.9 Doppler Measurements & Calculations MV E max sona: 60.5 cm/sec MV E/A TR max sona MV dec time MV A max sona: 58.7 cm/sec : 1.0 : 289.0 cm/sec : 0.21 sec MV P1/2t: 59.9 msec TR max P.4 mmHg MV P1/2t max sona MVA(P1/2t): 3.7 cm2 Electronically signed by: Wayne Pathak on Reading Physician:10/18/2016 05:20 PM
--- NOTE | 2016-10-18 18:07 | PCM.HPSURG ---
Subjective Date of Service: Oct 18, 2016 Referring Provider: Admitting Physician: Rosaura Fang DO Primary Care Physician: Sarthak Rehman MD Attending Physician: Jennifer Ferrara DO Chief Complaint I was asked for evaluation and treatment recommendations regarding a 76 y/o gentleman with bilateral staghorn calculi with gas in bilateral collecting system though without hydronephosis and with preserved parenchyma bilaterally. History of Present Illness Pt is a 76 y/o gentleman with h/o multiple medical comorbidities admitted to [facility] from [facility] 10/17/16 with diagnosis of "sepsis," with known bilateral staghorn calculi. By history status at [facility] was, "Patient's initial vitals on presentation to [facility] was temperature of 98.9F, blood pressure 102/ 40, respiratory rate 22, pulse oximetry 100%. Initial labs revealed a lactic acid of 2.4, potassium 3.7, creatinine kinase 1305 troponin I of 0.430, and a white blood cell count of 17.3 with a neutrophil predominance. He was initially treated with IV fluids and Levaquin at [facility] and then transferred to our facility as they had no telemetry monitored beds available." Pt was admitted to [facility] with WBC of 14 with 90% neutrophils, BUN Cr of 48/2.2 , elevated troponins and cr kinase. He has remained hemodynamically radha with BP in the 110s/50-60s and thus far Urine Cultures have been negative though blood cultures are growing GNR likely e coli thus far. UOP is inconsistently documented in chart thus far. Picture is complicated by patient's other medical issues which do include very poor nutrition and alcoholism. Review of old records show bilateral nephrolithiasis as far back as visible in [facility] PACS from 2013, though volume considerably less than present picture. Has has h/o interventions for stones in the past but is a quite poor historian on questioning. CT abd/pelvis of 10/17/16 did show large volume stone bilaterally with gas in the renal pelves bilaterally though without much hydronephosis either side, greatest diameter of stone on the right ca 3cm and on the left 2-2.5. Renal parenchyma is preserved bilaterally. Lack of contrast precludes evaluation of symmetry of renal blood flow/renal inflammation. There are some bilateral perinephric strandy changes c/w inflammation. Ureters are non-dilated, bladder minimally distended with large prostate c/w age. Allergy Allergies: Coded Allergies: No Known Allergies (Verified Allergy, 06/18/13) Medications Home medications see med rec Medications: see med rec/meditech chart Past Surgical History Operations: mult prior stones hemicolectomy by outside history Social History Hx Alcohol Use: Yes Hx Substance Use: Yes Hx Tobacco Use: Yes PMH HEENT History History of ENT Problems?: No HEENT History: Positive for:: Cataracts (2015 sx for removal ) Denies:: Dysphagia Glaucoma Sinus Problem Cardiovascular History History of Heart Problems?: Yes Cardiovascular History: Positive for:: Cardiac Surgery Edema Denies:: Chest Pain Congestive Heart Failure Heart Murmur Hypertension Irregular Heartbeat Pacemaker Thrombophlebitis Respiratory History of Respiratory Problem: Yes Respiratory History: Positive for:: COPD Dyspnea Pneumonia (Current dx and one time previously. ) Pulmonary Embolism (HX PE'S-ANTICOAGULATION) Denies:: Asthma Chest Surgery Emphysema Hemoptysis Tuberculosis Use of C-PAP Machine Neurological History Hx Neurologic Problems?: No Neurological History: Positive for:: Dizziness (when standing ) Denies:: Alzheimer's Disease CVA Dementia Headaches Parkinson's Disease Seizures Gastrointestinal History HX of GI Problems?: Yes Gastrointestinal History: Denies:: Diverticulitis Gastroesphageal Reflux Gastrointestinal Bleeding Heartburn Hepatitis Hiatal Hernia Rectal Bleeding Genitourinary History Hx of Gu Problems?: Yes Genitourinary History: Positive for: Kidney Stones (S/P CYSTO/RT STONE MANIP/ STENT, ESWL LT URETERAL STONE=CURRENT PROBLEM) Denies: HX of Hemodialysis Urinary Tract Infection Female/Male History Reproductive History Male: Positive for: Prostate Problems (BPH) Denies: Scrotal Mass Skin History Skin History: Denies:: History Skin Disorders? Pressure Ulcers Musculoskeletal History Hx Musculoskeletal Problems?: No Musculoskeletal History: Denies:: Back Injury Joint Replacement Musculoskeletal Trauma Psycho Social History Hx of Psycho/Social Problems?: Yes Psycho Social History: Positive for:: Hx Depression (medicated) Denies:: Anxiety Bipolar Disorder Suicide Attempt Other History Hx Any Other Health Problems?: Yes Other History: Positive for:: Cancer (colon) Denies:: Endocrine Disease Hospitalization Thyroid Disease Diabetes: No Social History Hx Alcohol Use: NoHx Substance Use: NoHx Tobacco Use: No Living Arrangement: with Family ( but uncertain if she is there consistently) Review of Systems Constitutional: Reports: Chills, Malaise, Weakness ENT: Reports: Membranes Dry, Denies: Throat Pain Cardiovascular: Denies: Chest Pain, Palpitations Respiratory: Denies: Cough, Sputum Gastrointestinal: Denies: Abdominal Pain, Change in Appetite, Nausea, Vomiting Genitourinary: Denies: Dysuria, Hematuria Musculoskeletal: Denies: Redness, Swelling Skin: Denies: Jaundice, Rash Neurological: Reports: Incoordination, Other (falling per famliy), Weakness Psychologic: Denies: Nervousness (poor memory) Endocrine: Denies: Change in Appitite, Polydipsea H&P Surgical Exam Exam General: Alert, Cooperative, No Acute Distress (poor historian, cooperative) Neck: Supple, Other (midline trachea, no scars, thin) Lungs: Normal Air Movement (no audible ronchi or wheezes, no tachypnea, no sob) Heart: Other (warm ext, tr dep edema, RRR, no JVD supine) Abdomen: Benign, Soft (THIN, cachectic), Non-distended Neuro: Grossly Neurologically Intact (clear speech, symmetric face poor memory generally- poor historian) Catheters: Urethral [address] [facility] Results: as above Diagnostics: as above Assessment & Plan Assessment Bilateral staghorn calculi with some gas in bilateral renal pelves with likely infectious etiology, without obvious hydronephosis. Hemodynamically radha cultures pending Stones will potentially be nidus for potential ongoing seeding of urine until cleared. Stones large enough to ultimately require percutaneous nephrolithotomy to clear - too much stone burden for either ureteroscopic treatment or extracorporeal shock wave Picture is complicated by patient's other medical issues which do include cardiac function and very poor nutrition as well as history of alcoholism. VTE Prophylaxis: Sub-Q Enoxaparin, SCDs Plan: Recommend ongoing supportive care including optimization of nutritional status in anticipation of eventual surgical treatment of patient's stones. in absence of hydronephosis, stent placement is not urgently indicated and would be unlikely to facilitate resolution of his acute issues including infectious process. Treatment/manipulation of stones is not undertaken in setting of ongoing acute infection as this can worsen bacteremia/sepsis Will ultimately need percutaneous nephrolithotomy for his quite large stone burden bilaterally Will ensure he has f/u once stabilized and discharged and will follow with you to assess for development of needs for more acute intervention. Thank you for allowing us to participate in this patient's care please do not hesitate to call with any questions Resuscitation Status: CPR: Attempt Resuscitation Jenny Sawyer MD Oct 18, 2016 18:07
--- NOTE | 2016-10-18 18:52 | PCM.PNMED ---
Subjective Date of Service Oct 18, 2016 Subjective Overnight Events: None Today, Mr Vidal is resting in bed comfortably and in no acute distress. He mentions feeling much better than yesterday. He has been having ensure per nutrition recommendation. He says he is breathing well, having no chest pain, cough, fevers, chills, abdominal pain, diarrhea or constipation. He currently has a rocha cath with decreased urine output. PT will work with him today. Exam Vital Signs Vital Sign - Last Date Time Temp Pulse Resp B/P Pulse Ox O2 Delivery O2 Flow Rate FiO2 10/18/16 04:38 84 16 100/50 95 Room Air 10/18/16 01:16 37.1 Intake and Output 10/17/16 10/17/16 10/18/16 Cumulative From/Thru 15:00 23:00 07:00 10/17/16 01:26 - 10/18/16 05:35 Intake Total 1575 ml 540 ml 2808 ml Output Total 450 ml 450 ml Balance 1125 ml 540 ml 2358 ml Intake Oral 630 ml 630 ml IV Total 945 ml 540 ml 2178 ml Output Urine Total 450 ml 450 ml # Bowel Movements 1 1 Exam General: Cachectic, frail man in no acute distress. HEENT: Temporal wasting. External ears without defect. Pupils equal, round, and reactive to light and accommodation. Pale conjunctiva, anicteric sclerae, moist conjunctivae, and no lid lag. Neck: Supple with full range of motion. No jugular venous distension. No bruits. No lymphadenopathy or thyromegaly. Cardiovascular: Regular rate and rhythm with no murmurs, rubs, or gallops appreciated Pulmonary: Course breath sounds in bilateral bases. Normal respiratory effort with no use of accessory muscles. Abdomen: Bowel tones present. Scaphoid, nontender, nondistended. No hepatosplenomegaly or masses appreciated. Extremities: No clubbing, cyanosis, edema Skin: Normal temperature, turgor, and texture; no rash, ulcers, or subcutaneous nodules appreciated. Neurological: Cranial nerves grossly intact. Normal muscle strength, tone, and bulk. Psychiatric: Normal mood and affect. Alert and oriented to person, place, and time. IVs and Medications Medications Reviewed: Medications were reviewed in detail Lab and Diagnostics Result Diagram: 10/18/16 0415 10/18/16 0415 Microbiology Urine Cultures Pending X-Rays, CTs and MRIs 10/17/16 PROCEDURE: CT CHEST, ABDOMEN AND PELVIS WITHOUT CONTRAST ([id number]) IMPRESSION: 1. Bilateral staghorn calculi, air in the collecting systems bilaterally suggestive of bilateral pyelitis in absence of recent instrumentation. Mild right hydronephrosis with no apparent obstructing calculi. Calcifications in the posterior bladder wall have been present previously. No associated soft tissue mass is identified. 2. Pulmonary emphysema and bilateral lower lobe atelectasis/infiltrate with small pleural effusions, appearing new since prior exam and possibly representing pneumonia. 3. 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 Dictated and approved by: Lucio Wilhelm M.D. on 10/17/2016 at 8:21 Imaging from [facility]: Head without contrast Impression: 1. No acute intracranial abnormality. 2. Mild chronic white matter small vessel ischemic changes and cerebral volume loss. Dictated by: Valentín Zheng M.D. on 10/16/16 at 2202 Chest 1 view Impression: 1. Chronic interstitial opacities redemonstrated without consolidation or other findings to suggest pneumonia. Dictated by: Valentín Zheng M.D. on 10/16/16 at 2204 12-lead ECG Normal sinus rhythm Cardiac Echo Impressions 10/18/16 Interpretation Summary The study quality was technically difficult. The left ventricle is normal in size. The ejection fraction is estimated to be 45-50%. There is apical inferior wall hypokinesis. Inferolateral hypokinesis Borderline right ventricular enlargement. There is no significant valvular heart disease. Assessment & Plan Claude Vidal is a 76-year-old man with past medical history significant for BPH, COPD, history of nephrolithiasis with multiple lithotripsies, and depression who initially presented to [facility] for ground level fall and was transferred to [facility] with the diagnosis of sepsis. He was found to have elevated CK, leukocytosis, elevated lactic acid and elevated creatinine, with CT chest, abdomen and pelvis revealing bilateral staghorn calculi with air. Urine analysis positive for UTI with cultures growing gram negative bacili. Blood cultures are positive for gram negative rods. He was initially treated at [facility] with IV levaquin. In [facility] he was started on vancomycin and zosyn and eventually just zosyn for UTI and bacteremia after MRSA swab came back negative. He is receiving IV fluids for suspected rhabdomyolysis, sepsis and acute kidney injury. Bacteremia, present on admission, improved. Blood cultures show gram negative rods. Leukocytosis has improved since admission. - On admisison, WBC 14.4 with 82% neutrophils in 15% bands. Procalcitonin 3.60 and CRP 20.8. - Blood cultures positive for gram negative rods. - CT chest, abdomen, pelvis results as above - Continue with Zosyn. Vancomycin discontinued. Complicated Urinary Tract Infection, present on admission, active Likely secondary to bilateral staghorn calculi. Urine cultures received from [facility] on 10/18/16 revealed gram negative bacilli. - Continue treatment with zosyn per ID - Urology consultation recommended treatment for UTI with outpatient followup with urology. Acute kidney injury, present on admission, improved. Per [facility]'s notes patient's baseline creatinine is around 1.1 and on admission was 2.26. - Continue IV fluids 80 mL/hr - Chest, abdomen and pelvis CT results as above. Rhabdomyolysis, present on admission, active. - Creatinine kinase at [facility] 1305 repeat on admission 3246. Now downtrending. - IV fluids continued at 80 ml/hr. Ground-level fall, present on admission, active. - Patient denies loss of consciousness or hitting his head. Per nursing corroborates the story. - CT of the brain at [facility] showed no acute intracranial abnormality. Elevated troponin of unknown significance, present on admission, active. Troponin I drawn at [facility] was 0.40. Repeat troponin T was 0.131. Likely due to demand ischemia. - Unclear etiology as EKG is unremarkable and shows normal sinus rhythm with no ST changes and patient denies any cardiac symptoms. - Echocardiogram results pending - Lexiscan ordered for 10/19/16 - NPO after midnight Sepsis diagnosed at [facility], not present on admission, resolved. - Patient transferred from [facility] with a diagnosis of cyst persists. The specific criteria met is not clear from records. Patient did have a respiratory rate of 22 but no specific mention of altered mentation or systolic blood pressure less than 100. - IV fluids at 80 mL/hr - We will monitor for signs of hemodynamic instability. Severe Protein Calorie Malnutrition, present on admission, active. Patient denies any recent weight loss and states he has always been thin. Extensive daily alcohol use - Living situation may be inappropriate but unclear as I was unable to contact the personally. - Encourage oral intake. - Nutrition consult appreciated. Alcohol Withdrawl, present on admission, active Per , patient has been drinking bottles of wine daily for at least 1.5 years. Unclear if patient has missed days or not. - Initiated CIWA protocol - Valium as needed for withdrawal symptoms. COPD, chronic - Started home spiriva Depression, chronic - Started Home Lexapro BPH - Started home tamsulosin Disposition: Likely greater than 2 midnights depending on patient clinical status. Will require improvement in kidney function, improvement in creatinine kinase and treatment of urinary tract infection and bacteremia. GI Prophylaxis: Not indicated VTE Prophylaxis: Sub-Q Enoxaparin, SCDs Resuscitation Status: CPR: Attempt Resuscitation Attending Statement The patient was seen and examined together with Dr. Cabrera on 10/18/2016 and I agree with the history, exam and plan as outlined in the note above. Kin Cabrera DO Oct 18, 2016 06:06 Jennifer Ferrara DO Oct 21, 2016 18:04 GI Prophylaxis: Not indicated VTE Prophylaxis: Sub-Q Enoxaparin, SCDs Resuscitation Status: CPR: Attempt Resuscitation Kin Cabrera DO Oct 18, 2016 06:06
[2016-10-19] VITALS (10 sets, daily range): BP systolic 106–124; BP diastolic 49–67; PULSE 75–103; RESP 14–20; O2SAT 92–100
[2016-10-19] MEDS: 0.9% Sodium Chloride 1,000 ML IV SCH ×2 (03:02→15:18)
[2016-10-19 04:14] LABS: BASOPHILS % (AUTO) 0.1 % (0-3); EOSINOPHILS % (AUTO) 1.1 % (0-5); MONOCYTES % (AUTO) 4.8 % (4-12); Mean Corpuscular Hemoglobin 33.8 pg (27.0-35.0); NEUTROPHILS % (AUTO) 88.9 % (40-74); Platelet Count 89 bil/L (150-400)
--- NOTE | 2016-10-19 05:40 | NUR ---
Vitals/skin/NPO Hypotensive this shift per baseline, all other VS stable. Q2 turns for skin care. Laury care performed by this [employer] underwriter. Pt NPO after midnight and no caffeine in prep for Lexiscan this AM. NS 80/hr in L PIV.
[2016-10-19] MEDS: Tiotropium 18mcg/Cap 5 Capsule Inhaler Kit INHALATION SCH (08:03)
[2016-10-19] MEDS: Heparin 5,000 Unit/mL Inj SUBQ SCH ×3 (08:30→23:39)
--- NOTE | 2016-10-19 09:11 | PCM.PNMED ---
Subjective Date of Service Oct 19, 2016 Subjective Claude Vidal is a 76-year-old man with past medical history significant for BPH, COPD, history of nephrolithiasis with multiple lithotripsies, and depression who initially presented to [facility] for ground level fall and was transferred to [facility] with the diagnosis of sepsis. He was found to have elevated CK, leukocytosis, elevated lactic acid and elevated creatinine, with CT chest, abdomen and pelvis revealing bilateral staghorn calculi with air. Urine analysis positive for UTI with cultures growing gram negative bacili. Blood cultures are positive for gram negative rods. He was initially treated at [facility] with IV levaquin. In [facility] he was started on vancomycin and zosyn and eventually just zosyn for UTI and bacteremia after MRSA swab came back negative. He is receiving IV fluids for suspected rhabdomyolysis, sepsis and acute kidney injury. Overnight Events: None Today, Claude is resting in bed comfortably and in no acute distress. He mentions feeling good for the last couple of days now. He says he is breathing well, having no chest pain, cough, fevers, chills, abdominal pain. He currently has a rocha cath with decreased urine output. PT will work with him today. He is also scheduled for a lexiscan today. Exam Vital Signs Vital Sign - Last Date Time Temp Pulse Resp B/P Pulse Ox O2 Delivery O2 Flow Rate FiO2 10/19/16 04:00 36.6 85 14 106/50 92 Room Air Intake and Output 10/18/16 10/18/16 10/19/16 Cumulative From/Thru 15:00 23:00 07:00 10/17/16 01:26 - 10/19/16 05:24 Intake Total 1649 ml 1118 ml 6205 ml Output Total 500 ml 1550 ml Balance 1149 ml 1118 ml 4655 ml Intake Oral 880 ml 2140 ml IV Total 769 ml 1118 ml 4065 ml Output Urine Total 500 ml 1550 ml # Bowel Movements 1 Exam General: Cachectic, frail man in no acute distress. HEENT: Temporal wasting. External ears without defect. Pupils equal, round, and reactive to light and accommodation. Pale conjunctiva, anicteric sclerae, moist conjunctivae, and no lid lag. Neck: Supple with full range of motion. No jugular venous distension. No bruits. No lymphadenopathy or thyromegaly. Cardiovascular: Regular rate and rhythm with no murmurs, rubs, or gallops appreciated Pulmonary: Course breath sounds in bilateral bases. Normal respiratory effort with no use of accessory muscles. Abdomen: Bowel tones present. Scaphoid, nontender, nondistended. No hepatosplenomegaly or masses appreciated. Extremities: No clubbing, cyanosis, edema Skin: Normal temperature, turgor, and texture; no rash, ulcers, or subcutaneous nodules appreciated. Neurological: Cranial nerves grossly intact. Normal muscle strength, tone, and bulk. Psychiatric: Normal mood and affect. Alert and oriented to person, place, and time. Lab and Diagnostics Result Diagram: 10/19/16 0400 10/19/16 0400 Microbiology Urine Cultures Pending X-Rays, CTs and MRIs 10/17/16 PROCEDURE: CT CHEST, ABDOMEN AND PELVIS WITHOUT CONTRAST ([id number]) IMPRESSION: 1. Bilateral staghorn calculi, air in the collecting systems bilaterally suggestive of bilateral pyelitis in absence of recent instrumentation. Mild right hydronephrosis with no apparent obstructing calculi. Calcifications in the posterior bladder wall have been present previously. No associated soft tissue mass is identified. 2. Pulmonary emphysema and bilateral lower lobe atelectasis/infiltrate with small pleural effusions, appearing new since prior exam and possibly representing pneumonia. 3. 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 Dictated and approved by: Lucio Wilhelm M.D. on 10/17/2016 at 8:[address] [facility]: Head without contrast Impression: 1. No acute intracranial abnormality. 2. Mild chronic white matter small vessel ischemic changes and cerebral volume loss. Dictated by: Valentín Zheng M.D. on 10/16/16 at 2202 Chest 1 view Impression: 1. Chronic interstitial opacities redemonstrated without consolidation or other findings to suggest pneumonia. Dictated by: Valentín Zheng M.D. on 10/16/16 at 2204 12-lead ECG Normal sinus rhythm Cardiac Echo Impressions 10/18/16 Interpretation Summary The study quality was technically difficult. The left ventricle is normal in size. The ejection fraction is estimated to be 45-50%. There is apical inferior wall hypokinesis. Inferolateral hypokinesis Borderline right ventricular enlargement. There is no significant valvular heart disease. Assessment & Plan Claude Vidal is a 76-year-old man with past medical history significant for BPH, COPD, history of nephrolithiasis with multiple lithotripsies, and depression who initially presented to [facility] for ground level fall and was transferred to [facility] with the diagnosis of sepsis. He was found to have elevated CK, leukocytosis, elevated lactic acid and elevated creatinine, with CT chest, abdomen and pelvis revealing bilateral staghorn calculi with air. Urine analysis positive for UTI with cultures growing gram negative bacili. Blood cultures are positive for gram negative rods. He was initially treated at [facility] with IV levaquin. In [facility] he was started on vancomycin and zosyn and eventually just zosyn for UTI and bacteremia after MRSA swab came back negative. He is receiving IV fluids for suspected rhabdomyolysis, sepsis and acute kidney injury. Bacteremia, present on admission, improved. Blood cultures show pansensitive E. coli. Leukocytosis has improved since admission. - Zosyn swtiched to ampicillin IV 2g q6h per Dr. Moraes.. Complicated Urinary Tract Infection, present on admission, active Likely secondary to bilateral staghorn calculi. Urine cultures received from [facility] on 10/18/16 revealed gram negative bacilli. - Zosyn swtiched to ampicillin 2g q6h per Dr. Moraes - Urology consultation recommended treatment for UTI with outpatient followup with urology Severe Protein Calorie Malnutrition, present on admission, active. Patient denies any recent weight loss and states he has always been thin. Extensive daily alcohol use - Encourage oral intake. - Nutrition consult appreciated. Recommending Ensure. Acute kidney injury, present on admission, improved. Per [facility]'s notes patient's baseline creatinine is around 1.1 and on admission was 2.26. - Continue IV fluids 80 mL/hr - Chest, abdomen and pelvis CT results as above. Rhabdomyolysis, present on admission, resolved. - Creatinine kinase at [facility] 1305 repeat on admission 3246. Now downtrending. - IV fluids continued at 80 ml/hr. - CK normalized Ground-level fall, present on admission. - Patient denies loss of consciousness or hitting his head. Per nursing corroborates the story. - CT of the brain at [facility] showed no acute intracranial abnormality. - Physical therapy to work with patient Elevated troponin of unknown significance, present on admission, active. Troponin I drawn at [facility] was 0.40. Repeat troponin T was 0.131. Likely due to demand ischemia. - Unclear etiology as EKG is unremarkable and shows normal sinus rhythm with no ST changes and patient denies any cardiac symptoms. - Echocardiogram results as above - Lexiscan scheduled 10/19/16, results pending Sepsis diagnosed at [facility], not present on admission, resolved. - Patient transferred from [facility] with a diagnosis of cyst persists. The specific criteria met is not clear from records. Patient did have a respiratory rate of 22 but no specific mention of altered mentation or systolic blood pressure less than 100. - IV fluids at 80 mL/hr - We will monitor for signs of hemodynamic instability. Alcohol Withdrawl, present on admission, active Per , patient has been drinking bottles of wine daily for at least 1.5 years. Unclear if patient has missed days or not. - Initiated CIWA protocol - Valium as needed for withdrawal symptoms. COPD, chronic - Continue home spiriva Depression, chronic - Continue Home Lexapro BPH - Continue home tamsulosin Disposition: Likely greater than 2 midnights depending on patient clinical status. Will require improvement in kidney function, improvement in creatinine kinase and treatment of urinary tract infection and bacteremia. Patient requires discharge to SNF for rehab. GI Prophylaxis: Not indicated VTE Prophylaxis: Sub-Q Enoxaparin, SCDs Resuscitation Status: CPR: Attempt Resuscitation Attending Statement The patient was seen and examined together with Dr. Cabrera on 10/19/16 and I have added additional information to the note above. Kin Cabrera DO Oct 19, 2016 06:24 Jennifer Ferrara DO Oct 19, 2016 18:20
--- NOTE | 2016-10-19 10:30 | NUR ---
Cardiac Stress test pt ordered for STEARCLEARiScan Cardiac stress test. pt aware. pt npo since mn. pt transported via wheelchair, SL, RA. alert and oriented. pt departed unit at about 0810 and returned at about 1010. telemetry removed and pvc monitor informed of departure and return. will continue to monitor.
--- NOTE | 2016-10-19 10:51 | PROG NOTE ---
[address] [address] PROGRESS NOTE PATIENT: JERI NORWOOD : 1940 MR#: [id number] ADMIT: 10/17/2016 JOB ID: [id number] DATE: 10/19/2016 REASON FOR FOLLOWUP: Bacteremia complicated E. coli urinary tract infections. INTERVAL HISTORY: Overnight, the patient reports no fevers, chills, or sweats. He is gradually feeling somewhat better, though still very weak on the basis of extraordinary malnutrition and debilitation. No significant shortness of breath. No abdominal pain, nausea, vomiting, diarrhea. PHYSICAL EXAMINATION: Reveals an afebrile gentleman, temperature 36.8. Pulse 100, respiratory rate 18, blood pressure 110/54. He is saturating well on room air. The patient is, as noted yesterday, extraordinarily gaunt, with a BMI of only 13, and a weight well below 100 pounds, despite being just shy of 6 feet tall. He is awake, alert, and making jokes this morning following his nonexertional stress test done by Cardiology. His eyes are without scleral icterus. Oral cavity negative. Lungs: Fairly clear. No flank tenderness. No abdominal tenderness. LABORATORIES: Include: White count 9100. Creatinine 1.87, which is improved from yesterday's 2.12. LFTs entirely normal. Procalcitonin 2.23, down from 4 yesterday. Urine had 11-50 white cells, and the culture was negative, but the blood cultures grew E. coli. Recall that the imaging showed staghorn calculi bilaterally with air in the collecting system bilaterally. Urology has already seen this patient in consultation. Dr. Sawyer stated that she found the staghorn calculi impressive, and that he would eventually require percutaneous nephrolithotomy to clear the stones, as they were too large for ureteroscopic or extracorporeal shockwave therapy. She stated that this should be done following resolution of this complicated infection. IMPRESSION: Complicated urinary tract infection with bilateral upper tract disease with air in the collecting system secondary to bacteremic Escherichia coli infection. It turns out that the Escherichia coli is quite susceptible to virtually all antibiotics, including ampicillin and Cipro. RECOMMENDATIONS: 1. Will discontinue the Zosyn as it is not required at this point. 2. Will start the patient on ampicillin 2 g IV q.6. 3. When the patient is ready for discharge, he can be sent out on renally adjusted oral ciprofloxacin or levofloxacin dosing to complete a two week course of therapy. 4. Followup with Urology will be an essential part of this patient's management. 5. Note that the patient also has ongoing alcohol abuse, alcoholic hepatitis, and malnutrition to the point of starvation. If these problems are not addressed and/or corrected, it is unlikely that the patient will survive much longer given the profound malnutrition and debility that is currently consuming him.
--- NOTE | 2016-10-19 10:54 | DRSVH ---
PROCEDURE: 1 DAY PHARMACOLOGICAL STRESS TEST Rest and pharmacological stress myocardial perfusion SPECT with gated imaging and ejection fraction RADIOPHARMACEUTICAL: 7.9 mCi Tc-99m tetrafosmin IV at rest and 25.3 mCi Tc-99m tetrafosmin IV at peak effect of pharmacological stress. A [id number] was performed. INDICATIONS: ELEVATED TROPONINS TECHNIQUE: Radiopharmaceutical was injected at peak stress test, and also at rest. SPECT images wer e obtained. SPECT myocardial perfusion images were displayed in short axis, horizontal long axis, an d vertical long axis views. Gated images were reviewed using [employer] software. Prone imaging could not be performed secondary to body habitus. COMPARISON: None. CARDIAC STRESS: A pharmacologic stress test was performed under the supervision of an attending staff, using an infus ion of Lexiscan. Hemodynamic data: There is normal blood pressure and heart rate response to pharmacologic stress. Symptoms: The patient denied anginal chest pain. Aminophylline: Not given EKG: No diagnostic changes of ischemia; no ectopy. FINDINGS: Raw data: There is good myocardial uptake of radiotracer. No significant motion artifacts. Left ventricle function: Gated images demonstrate normal left ventricular wall thickening. No segme ntal wall motion abnormalities. Left ventricle resting end diastolic volume is 48 mL. Left ventricl e stress ejection fraction is 75%; normal range is above 45%. Myocardial perfusion: There is mildly decreased uptake within the inferior wall of the left ventricle extending from base to apex on both stress and rest imaging. There is otherwise normal distribution of activity in the right and left ventricular myocardium. No fixed or reversible perfusion defects. IMPRESSION: 1. Prone imaging could not be performed. Decreased uptake within the inferior wall of the left ventri oseas on both stress and rest imaging is present, presumably artifactual. There is no evidence of myoca rdial ischemia. 2. Normal left ventricular function. PQRS ATTESTATIONS: Measure 322 - Is this imaging test primarily performed on a low-risk surgery patient for preoperative evaluation within 30 days preceding their low-risk non-cardiac surgery? Low-risk surgery is defined as cardiac or myocardial infarction less than 1%, including (but not limited to) endoscopic pr ocedures, superficial procedures, cataract surgery, and excisional breast surgery: Answer: No Measure 323 - Is this imaging test performed primarily for the monitoring of an asymptomatic patient who had percutaneous coronary intervention on the visit date or within 2 years of the visit date? An swer: No Measure 324 - Is this imaging test performed primarily for the initial detection and risk assessment on an asymptomatic, low coronary heart disease patient? Low CHD risk definition = clinicians should consider the maximum number of available patient factors used to estimate risk based on [place] (A TP III criteria), typically age, gender, diabetes, smoking status, and use of blood pressure medicati on, and integrate age appropriate estimates for missing elements, such as LDL or standard blood press ure. Answer: No Dictated by: Anastasiya Vizcaino M.D. on 10/19/2016 at 10:49 Transcribed by: SARA on 10/19/2016 at 10:53 Approved by: Anastasiya Vizcaino M.D. on 10/19/2016 at 16:05
[2016-10-19] MEDS: Ampicillin Inj 2,000 MG in 0.9% Sodium Chloride 100 ML IV SCH ×3 (11:00→20:04)
[2016-10-19] MEDS: Multivit-Miner-Folic Acid-Iron Tablet PO SCH (11:01)
--- NOTE | 2016-10-19 12:06 | NUR ---
[facility] Signed @ 1016AM
--- NOTE | 2016-10-19 16:10 | NUR ---
Social Work Note: Continued Discharge Planning/Multidisciplinary Rounds Data& Assessment: Pt was discussed in AM rounds, per MD pt is getting closer to being medically ready for discharge. PT is recommending SNF . Per MD order, SW met with pt and pt at bedside to provide SNF list and discuss preferences. Pt preference is for [facility] and second preference is for [facility]. Referral provided. Pt has not been placed on CIWA protocol, after discussion with MD, Substance use order is no longer seen as appropriate and is being canceled. Pt and pt denies any needs at this time. SW to continue to follow. Plan: Anticipated discharge to SNF pending acceptance. [facility] is reviewing pt at this time. Pt and pt denies any needs at this time. SW to continue to follow. EMAGAN Marrero
[2016-10-19] MEDS ORDERED: Albuterol-Ipratropium 3 mL Inhalation Solution NEB PRN (18:20)
[2016-10-20] VITALS (8 sets, daily range): BP systolic 96–119; BP diastolic 48–62; PULSE 69–102; RESP 16–24; O2SAT 95–99
[2016-10-20] MEDS: 0.9% Sodium Chloride 1,000 ML IV SCH ×2 (03:09→15:37)
[2016-10-20] MEDS: Ampicillin Inj 2,000 MG in 0.9% Sodium Chloride 100 ML IV SCH ×4 (03:09→21:46)
[2016-10-20 05:11] LABS: BASOPHILS % (AUTO) 0 % (0-3); EOSINOPHILS % (AUTO) 1.2 % (0-5); Mean Corpuscular Hemoglobin 34.1 pg (27.0-35.0); Mean Corpuscular Volume 99.3 fL (81-100); NEUTROPHILS % (AUTO) 84.5 % (40-74); Platelet Count 100 bil/L (150-400)
--- NOTE | 2016-10-20 08:58 | PROG NOTE ---
[address] [address] PROGRESS NOTE PATIENT: JERI NORWOOD : 1940 MR#: [id number] ADMIT: 10/17/2016 JOB ID: [id number] DATE: 10/20/2016 INFECTIOUS DISEASE FOLLOW UP NOTE: REASON FOR FOLLOWUP: E. coli bacteremia and sepsis secondary to complicated urinary tract infection due to bilateral staghorn calculi. INTERVAL HISTORY: Overnight, the patient continues to feel better. He was able to get up and do quite a bit of walking with physical therapy yesterday and he notes his strength is increasing. He also notes that with improvement in his appetite and eating that his weight has already jumped 7 pounds or so since admission. He no longer has any fevers, chills or headache. No cough, no significant abdominal pain and no flank pain. PHYSICAL EXAMINATION: Reveals a comfortable gentleman, in no acute distress. Temperature 36.8, pulse 76, respiratory rate 18, blood pressure 119/57. He is saturating well on room air. Appears in no distress. Examination of the oral cavity is unremarkable. Mental status seems clear this morning. Lungs relatively clear. A few crackles at the base. Abdomen soft, nontender. No flank tenderness. No skin rash. LABORATORIES: Include a white count which continues normal at 8500, platelet count 100,000. Creatinine 1.66. LFTs are normal. BNP 9600. Procalcitonin down from 4 to 2.2 as of yesterday, not repeated today. Probably does not need to be. Urinalysis had significant pyuria and blood cultures grew an ampicillin sensitive E. coli. Note this is also Cipro and Septra susceptible. The patient underwent a stress test. This was a nonexertional stress test which showed no evidence of myocardial ischemia. IMPRESSION: The patient is much improved with respect to his bacteremic E. coli infection secondary to complicated urinary tract infection with bilateral staghorn calculi and air in the collecting system. He is doing well at this point on ampicillin and can be transitioned to Cipro or levo to facilitate discharge whenever it is time for him to leave the hospital. The patient's weight has jumped up substantially which has raised his BMI from 13 to 17, but this may be a bit artifactual and related to perhaps over hydration, but nonetheless it is good to see he has put on some weight by whatever mechanism. As the patient is taken off alcohol here in the hospital, it appears that his appetite is increasing and the patient is telling me he is hungry for the first time in a while, looking forward to breakfast. It would seem that he has an opportunity to substantially improve his health to avoid alcohol, increase his dietary intake and exercise. RECOMMENDATIONS: 1. Will continue with ampicillin 2 g IV q.6 until he is ready for discharge. 2. He could be sent out on oral Cipro or levo to complete a total of two weeks of therapy. 3. Followup with Urology is essential given the nature of the staghorn calculi and the need for intervention.
--- NOTE | 2016-10-20 09:05 | NUR ---
Faxed referral to [facility], called and spoke with Greg Norton he is expecting referral.
[2016-10-20] MEDS: Tiotropium 18mcg/Cap 5 Capsule Inhaler Kit INHALATION SCH (09:19)
[2016-10-20] MEDS: Multivit-Miner-Folic Acid-Iron Tablet PO SCH (09:21)
[2016-10-20] MEDS: Heparin 5,000 Unit/mL Inj SUBQ SCH ×2 (09:21→18:08)
--- NOTE | 2016-10-20 10:12 | PCM.PNMED ---
Subjective Date of Service Oct 20, 2016 Subjective Overnight Events: None Today, Claude is resting in bed comfortably and in no acute distress. He mentions feeling "confident" today and having more energy. He's feeling good about eating, gaining weight, and being able to walk with physical therapy yesterday. He denies chest pain, cough, fevers, chills, abdominal pain. He currently has a rocha catheter in. After reassessing around 0915 when orthostatic vitals were taken, he was having significant stress with standing and his heart rate elevated dramatically, which seems to be a decline in physical ability since yesterday. His standing systolic blood pressure was 68. We will have him sitting in a recliner chair today. Exam Vital Signs Vital Sign - Last Date Time Temp Pulse Resp B/P Pulse Ox O2 Delivery O2 Flow Rate FiO2 10/20/16 06:12 76 10/20/16 03:03 36.8 18 119/57 95 Room Air Intake and Output 10/19/16 10/19/16 10/20/16 Cumulative From/Thru 15:00 23:00 07:00 10/17/16 01:26 - 10/20/16 06:21 Intake Total 0 ml 820 ml 1805 ml 8830 ml Output Total 1100 ml 1600 ml 700 ml 4950 ml Balance -1100 ml -780 ml 1105 ml 3880 ml Intake Oral 0 ml 820 ml 100 ml 3060 ml IV Total 1705 ml 5770 ml Output Urine Total 1100 ml 1600 ml 700 ml 4950 ml # Bowel Movements 1 Exam General: Cachectic, frail man in no acute distress. HEENT: Temporal wasting. External ears without defect. anicteric sclerae, moist conjunctivae, and no lid lag. Neck: Supple with full range of motion. No jugular venous distension. No bruits. No lymphadenopathy or thyromegaly. Cardiovascular: Regular rate and rhythm with no murmurs, rubs, or gallops appreciated Pulmonary: Course breath sounds in bilateral bases. Normal respiratory effort with no use of accessory muscles. Abdomen: Bowel tones present. Scaphoid, nontender, nondistended. No hepatosplenomegaly or masses appreciated. Extremities: No clubbing, cyanosis, edema Skin: Normal temperature, turgor, and texture; no rash, ulcers, or subcutaneous nodules appreciated. Neurological: Cranial nerves grossly intact. Normal muscle strength, tone, and bulk. Psychiatric: Normal mood and affect. Alert and oriented to person, place, and time. IVs and Medications Medications Reviewed: Medications were reviewed in detail Lab and Diagnostics Result Diagram: 10/20/16 0430 10/20/16 0430 Microbiology Urine Cultures Pending X-Rays, CTs and MRIs 10/17/16 PROCEDURE: CT CHEST, ABDOMEN AND PELVIS WITHOUT CONTRAST ([id number]) IMPRESSION: 1. Bilateral staghorn calculi, air in the collecting systems bilaterally suggestive of bilateral pyelitis in absence of recent instrumentation. Mild right hydronephrosis with no apparent obstructing calculi. Calcifications in the posterior bladder wall have been present previously. No associated soft tissue mass is identified. 2. Pulmonary emphysema and bilateral lower lobe atelectasis/infiltrate with small pleural effusions, appearing new since prior exam and possibly representing pneumonia. 3. 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 Dictated and approved by: Lucio Wilhelm M.D. on 10/17/2016 at 8:21 Imaging from [facility]: Head without contrast Impression: 1. No acute intracranial abnormality. 2. Mild chronic white matter small vessel ischemic changes and cerebral volume loss. Dictated by: Valentín Zheng M.D. on 10/16/16 at 2202 Chest 1 view Impression: 1. Chronic interstitial opacities redemonstrated without consolidation or other findings to suggest pneumonia. Dictated by: Valentín Zheng M.D. on 10/16/16 at 2204 12-lead ECG Normal sinus rhythm Cardiac Echo Impressions 10/18/16 Interpretation Summary The study quality was technically difficult. The left ventricle is normal in size. The ejection fraction is estimated to be 45-50%. There is apical inferior wall hypokinesis. Inferolateral hypokinesis Borderline right ventricular enlargement. There is no significant valvular heart disease. Additional Diagnostics CARDIAC STRESS: 10/19/16 FINDINGS: Raw data: There is good myocardial uptake of radiotracer. No significant motion artifacts. Left ventricle function: Gated images demonstrate normal left ventricular wall thickening. No segmental wall motion abnormalities. Left ventricle resting end diastolic volume is 48 mL. Left ventricle stress ejection fraction is 75%; normal range is above 45%. Myocardial perfusion: There is mildly decreased uptake within the inferior wall of the left ventricle extending from base to apex on both stress and rest imaging. There is otherwise normal distribution of activity in the right and left ventricular myocardium. No fixed or reversible perfusion defects. IMPRESSION: 1. Prone imaging could not be performed. Decreased uptake within the inferior wall of the left ventricle on both stress and rest imaging is present, presumably artifactual. There is no evidence of myocardial ischemia. 2. Normal left ventricular function. Assessment & Plan Claude Vidal is a 76-year-old man with past medical history significant for BPH, COPD, history of nephrolithiasis with multiple lithotripsies, and depression who initially presented to [facility] for ground level fall and was transferred to [facility] with the diagnosis of sepsis. Bacteremia, present on admission, improved. Blood cultures show pansensitive E. coli. Leukocytosis has improved since admission. - Ampicillin IV 2g q6h per Dr. Moraes. - MRSA negative Complicated Urinary Tract Infection, present on admission, active Likely secondary to bilateral staghorn calculi. Urine cultures received from [facility] on 10/18/16 revealed gram negative bacilli. - Zosyn swtiched to ampicillin 2g q6h per Dr. Moraes - Urology consultation recommended treatment for UTI with outpatient followup with urology Severe Protein Calorie Malnutrition, present on admission, active. Patient denies any recent weight loss and states he has always been thin. Extensive daily alcohol use - Encourage oral intake. - Nutrition consult appreciated. Recommending Ensure. - He is up over 6kg since admission - Will check phosphorus level. Acute kidney injury, present on admission, improved. Per [facility]'s notes patient's baseline creatinine is around 1.1 and on admission was 2.26. - Discontinue IV fluids today to see how patient's body will react without fluids to assess his needs. He had orthostatic hypotension with systolic blood pressure 68. We will also have him in a recliner chair, so that his body isn't in a laying down position all day long. Rhabdomyolysis, present on admission, resolved. - Creatinine kinase at [facility] 1305 repeat on admission 3246. Now downtrending. - IV fluids held today to see how body reacts and assess needs. - CK normalized Ground-level fall, present on admission. - Patient denies loss of consciousness or hitting his head. Per nursing corroborates the story. - CT of the brain at [facility] showed no acute intracranial abnormality. - Physical therapy worked with patient 10/19/16 and patient walked 110 steps. Elevated troponin of unknown significance, present on admission, active. Troponin I drawn at [facility] was 0.40. Repeat troponin T was 0.131. Likely due to demand ischemia. - Unclear etiology as EKG is unremarkable and shows normal sinus rhythm with no ST changes and patient denies any cardiac symptoms. - Echocardiogram results as above - Lexiscan results as above. Alcohol Withdrawl, present on admission, active Per , patient has been drinking bottles of wine daily for at least 1.5 years. Unclear if patient has missed days or not. - Initiated CIWA protocol - Valium as needed for withdrawal symptoms. COPD, chronic - Continue home spiriva Depression, chronic - Continue Home Lexapro BPH - Continue home tamsulosin Disposition: Likely 2-3 days depending on patient clinical status. Patient requires discharge to SNF for rehab. GI Prophylaxis: Not indicated VTE Prophylaxis: Sub-Q Enoxaparin, SCDs Resuscitation Status: CPR: Attempt Resuscitation Attending Statement The patient was seen and examined together with Dr. Cabrera on 10/20/16 and I have added additional information to the note above. Kin Cabrera DO Oct 20, 2016 06:38 Jennifer Ferrara DO Oct 26, 2016 21:20 Kin Cabrera DO Oct 20, 2016 06:38
--- NOTE | 2016-10-20 10:37 | NUR ---
Hypotension Pt up with PT to stand with FWW. Orthostatic BP demonstrated a decrease in BP to 66/36 with standing and HR 112. Pt stated that he felt winded "like I had exercised". Pt was helped back to bed. Per MD, would like pt up to chair (recliner) regularly to increase pt's tolerance to positional changes.
--- NOTE | 2016-10-20 10:59 | NUR ---
NUTRITION FOLLOW-UP: Assess: 76 YO M admitted for sepsis, rhabdomyolysis, and GLF. At admit pt's BMI was documented to be 13.3. He reported that at home he eats well. His appetite is decreased because he is in the hospital. He reported that he tries to eat lots of protein at home and fresh fruit. He has begun to drink Ensure with all his meals. Per MD notes, pt has history of etoh abuse and family believes that the pt is drinking again. Reported UBW is ~60kg (25% wt loss x1 year = severe wt loss). Per RN 10/19, pt's ht was recorded incorrectly at admit. When pt's ht was corrected, his BMI improved. Current BMI is 17.4, which is still underwt but not as significant as 13. Pt's wt is up ~6kg from admit. PMHX: BPH, COPD, nephrolithiasis, depression, R hemicolectomy, PE. DIET: General. 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 , thiamine GI: BMx1 10/17 SKIN: Medial sacral PU. No wound eval yet. Visible muscle/fat loss ANTHROPOMETRICS: Wt: 50.4 kg, BMI 17.4 kg/m2 = underweight. Admit wt: 44.6 kg. IBW: 67kg UBW ~60kg, 25% wt loss x1 year= severe ESTIMATED NEEDS: WT GAIN/WOUNDS/COPD Calories: 9469-8812 kcal/day (35-40 kcal/kg BW) Protein: 100-120 g/day (1.5-1.8 g/kg IBW) NUTRITION DIAGNOSIS: 1) Inadequate oral intake related to decreased ability to consume sufficient energy as evidenced by underweight BMI 13.3 kg/m2. --IMPROVING 2) Severe pro/kcal malnutrition related to poss alcoholism and COPD as evidence by BMI of 17.4kg/m2, ~25% wt loss x1 year and severe muscle/fat loss--PERSISTS INTERVENTION: 1) RD spoke with pt 10/18 regarding his wt and his appetite. Discussed the importance of gaining wt and making sure that he is consuming adequate kcal/pro. Discussed eating smaller/more frequent meals when his appetite is decreased and high kcal/pro food sources. Provided high kcal/pro handout and high kcal/pro recipe book. Pt was engaged and expressed understanding 2) Continue Vanilla Ensure on all trays per pt preference. Pt requested no milk on trays since he is receiving Ensure. 3) Requested daily wt's to closely monitor pt's wt MONITOR/EVALUATE: PO intake, diet tolerance, wt, labs, GI/nutrition status. Follow per moderate nutrition risk guidelines.
--- NOTE | 2016-10-20 16:10 | NUR ---
Social Work: Multidisciplinary Rounds Pt discussed in am rounds. Pt is not medically stable for discharge. Sw status remains unchanged; anticipate d/c to skilled rehab; Catie is reviewing. LEAN SENSEI to continue to follow. MEAGAN Goodrich
[2016-10-20] MEDS ORDERED: Potassium Phosphate 500 mg Tablet PO ONE (18:55)
[2016-10-21 00:14] VITALS: BP 121/57; PULSE 78; RESP 20; O2SAT 95
[2016-10-21] MEDS: Heparin 5,000 Unit/mL Inj SUBQ SCH ×2 (00:14→08:17)
[2016-10-21 03:24] VITALS: PULSE 81
[2016-10-21 03:53] VITALS: BP 123/57; PULSE 85; RESP 18; O2SAT 96
[2016-10-21 04:13] LABS: BASOPHILS % (AUTO) 0.1 % (0-3); EOSINOPHILS % (AUTO) 2.1 % (0-5); MONOCYTES % (AUTO) 9.9 % (4-12); Mean Corpuscular Hemoglobin 33.8 pg (27.0-35.0); Mean Corpuscular Volume 98.6 fL (81-100); NEUTROPHILS % (AUTO) 78.8 % (40-74); Platelet Count 106 bil/L (150-400)
[2016-10-21] MEDS: Ampicillin Inj 2,000 MG in 0.9% Sodium Chloride 100 ML IV SCH ×3 (04:17→15:29)
[2016-10-21 04:30] LABS: Phosphorus 2.1 mg/dL (2.5-4.9)
--- NOTE | 2016-10-21 05:37 | NUR ---
Bell/Activity Bell DC'd per Day RN around noon and pt had not voided on own at shift change. Night RN took pt to bathroom and noticed brief was wet and pt was then able to void on own. Pt up to BR x2 this shift and tolerated well, will 1PA and FWW. VSS and Tele SR 70's.
[2016-10-21 08:00] VITALS: PULSE 85
[2016-10-21 08:15] VITALS: BP 109/65; PULSE 80; RESP 22; O2SAT 98
[2016-10-21] MEDS: Tiotropium 18mcg/Cap 5 Capsule Inhaler Kit INHALATION SCH (08:17)
[2016-10-21] MEDS: Multivit-Miner-Folic Acid-Iron Tablet PO SCH (08:17)
--- NOTE | 2016-10-21 09:02 | PROG NOTE ---
[address] [address] PROGRESS NOTE PATIENT: JERI NORWOOD : 1940 MR#: [id number] ADMIT: 10/17/2016 JOB ID: [id number] DATE: 10/21/2016 INFECTIOUS DISEASE FOLLOWUP NOTE: REASON FOR FOLLOWUP: Bacteremic complicated E. coli urinary tract infection. INTERVAL HISTORY: Overnight, the patient has continued to steadily improve. He is now eating and drinking well. He has no fevers, chills, or sweats. No significant respiratory difficulty. No flank pain. He does note urinary urgency, which has been a problem for him for years but is worse now that he has the UTI and recently had a Bell. PHYSICAL EXAMINATION: Reveals a much more comfortable and completely lucid gentleman. He has been afebrile throughout his 4-1/2 day hospital stay. Temp 36.5, pulse 80, respiratory rate 22, blood pressure 109/65, saturating well on room air. He is awake, alert, lucid. Oral cavity negative. Lungs: A few crackles at the left base but basically clear. Cardiac tones: No murmur is heard. Regular rate and rhythm. Abdomen is soft, nontender. No flank tenderness. LABORATORIES: Include white count completely normally, once again 7100. The diff is basically normal. Platelets low at 106 likely reflecting colonic liver disease. Creatinine down to 1.39, which is steadily improving. LFT normal. Last procalcitonin was a couple of days ago at 2.23. Micro studies include blood which grew the E. coli. That E. coli is very susceptible to all tested agents including exquisitely sensitive to quinolones. IMPRESSION: This is a gentleman who presented with a bacteremic Escherichia coli urinary tract infection secondary to bilateral staghorn calculi. At this point, he is doing very well on IV ampicillin and could be discharged on oral Cipro or levofloxacin at any time. His weight is up almost 13 pounds since admission. Obviously, some of this is fluid but it just goes to show how well the patient can do if he eats a regular diet and stops drinking. RECOMMENDATIONS: 1. I would continue with the ampicillin IV until he is ready for discharge but I think that could be anytime. 2. Once he is ready for discharge, I would send him out on oral Cipro or levofloxacin, whichever is more convenient, to complete 14 days of total therapy with credit for time served here in the hospital. 3. The patient will require followup with Urology in the very near future regarding these massive staghorn calculi. Thank you very much. I will be signing off this case at this time.
--- NOTE | 2016-10-21 10:09 | PCM.PNMED ---
Subjective Date of Service Oct 21, 2016 Subjective Overnight Events: None Today, Claude is resting in bed comfortably, awaken from sleep and in no acute distress. Yesterday we have removed his rocha catheter and he mentions he has been having some bed wetting. He says that he suddenly gets the urge to go and then immediately he wets his bed before he can try to use a urinal. Other than that, he denies chest pain, shortness of breath, fevers, chills, pain with urination, abdominal pain, nausea and vomiting. Exam Vital Signs Vital Sign - Last Date Time Temp Pulse Resp B/P Pulse Ox O2 Delivery O2 Flow Rate FiO2 10/21/16 03:53 36.7 85 18 123/57 96 Room Air Intake and Output 10/20/16 10/20/16 10/21/16 Cumulative From/Thru 15:00 23:00 07:00 10/17/16 01:26 - 10/20/16 20:39 Intake Total 1246 ml 65243 ml Output Total 800 ml 5750 ml Balance 446 ml 4326 ml Intake Oral 700 ml 3760 ml IV Total 546 ml 6316 ml Output Urine Total 800 ml 5750 ml # Bowel Movements 1 2 Exam General: Cachectic, frail man in no acute distress. He is looking better since admission gaining over 10 lbs. HEENT: Temporal wasting. External ears without defect. anicteric sclerae, moist conjunctivae, and no lid lag. Neck: Supple with full range of motion. No jugular venous distension. No bruits. No lymphadenopathy or thyromegaly. Cardiovascular: Regular rate and rhythm with no murmurs, rubs, or gallops appreciated Pulmonary: Decreased air sounds in bilateral lower lung base. Normal respiratory effort with no use of accessory muscles. Abdomen: Bowel tones present. Scaphoid, nontender, nondistended. No hepatosplenomegaly or masses appreciated. Extremities: No clubbing, cyanosis, edema Skin: Normal temperature, turgor, and texture; no rash, ulcers, or subcutaneous nodules appreciated. Neurological: Cranial nerves grossly intact. decreased muscle bulk throughout the body. Psychiatric: Normal mood and affect. Alert and oriented to person, place, and time. Lab and Diagnostics Item Value Date Time Phosphorus Level 2.0 mg/dL L 10/20/16 0430 Phosphorus Level 2.1 mg/dL L 10/21/16 0350 Result Diagram: 10/21/16 0350 10/21/16 0350 Microbiology AURY CULTURE BLOOD Final 10/19/16-0624 Organism 1 ESCHERICHIA COLI GRAM STAIN RESULT GRAM NEGATIVE RODS BC BOTTLE Isolated from Aerobic Bottle of Set Drawn DATE CALLED: 10/17/16 TIME CALLED: 2054 CALLED BY: TYLER TYLER/DOCTOR: JAZZMINE/ANGELINA Pringle BC READ BACK YES TYPE OF DRAW PERIPHERAL DRAW TIME OF POSITIVITY 1999 ISOLATED FROM TWO OF TWO BOTTLES COLLECTED 10/17 1. ESCHERICHIA COLI M.I.C Interp --------- ------ * AMIKACIN <=2 S * AMPICILLIN <=2 S * AMPICILLIN/SULBACTAM <=2 S * CEFEPIME <=1 S * CEFOXITIN 8 S * CEFTRIAXONE <=1 S * CIPROFLOXACIN <=0.25 S * ERTAPENEM <=0.5 S * GENTAMICIN <=1 S * MEROPENEM <=0.25 S * TOBRAMYCIN <=1 S * TRIMETHOPRIM/SULFAMETHOXAZOLE <=20 S * PIPERACILLIN/TAZOBACTAM <=4 S X-Rays, CTs and MRIs 10/17/16 PROCEDURE: CT CHEST, ABDOMEN AND PELVIS WITHOUT CONTRAST ([id number]) IMPRESSION: 1. Bilateral staghorn calculi, air in the collecting systems bilaterally suggestive of bilateral pyelitis in absence of recent instrumentation. Mild right hydronephrosis with no apparent obstructing calculi. Calcifications in the posterior bladder wall have been present previously. No associated soft tissue mass is identified. 2. Pulmonary emphysema and bilateral lower lobe atelectasis/infiltrate with small pleural effusions, appearing new since prior exam and possibly representing pneumonia. 3. 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 Dictated and approved by: Lucio Wilhelm M.D. on 10/17/2016 at 8:21 Imaging from [facility]: Head without contrast Impression: 1. No acute intracranial abnormality. 2. Mild chronic white matter small vessel ischemic changes and cerebral volume loss. Dictated by: Valentín Zheng M.D. on 10/16/16 at 2202 Chest 1 view Impression: 1. Chronic interstitial opacities redemonstrated without consolidation or other findings to suggest pneumonia. Dictated by: Valentín Zheng M.D. on 10/16/16 at 2204 12-lead ECG Normal sinus rhythm Cardiac Echo Impressions 10/18/16 Interpretation Summary The study quality was technically difficult. The left ventricle is normal in size. The ejection fraction is estimated to be 45-50%. There is apical inferior wall hypokinesis. Inferolateral hypokinesis Borderline right ventricular enlargement. There is no significant valvular heart disease. Additional Diagnostics CARDIAC STRESS: 10/19/16 FINDINGS: Raw data: There is good myocardial uptake of radiotracer. No significant motion artifacts. Left ventricle function: Gated images demonstrate normal left ventricular wall thickening. No segmental wall motion abnormalities. Left ventricle resting end diastolic volume is 48 mL. Left ventricle stress ejection fraction is 75%; normal range is above 45%. Myocardial perfusion: There is mildly decreased uptake within the inferior wall of the left ventricle extending from base to apex on both stress and rest imaging. There is otherwise normal distribution of activity in the right and left ventricular myocardium. No fixed or reversible perfusion defects. IMPRESSION: 1. Prone imaging could not be performed. Decreased uptake within the inferior wall of the left ventricle on both stress and rest imaging is present, presumably artifactual. There is no evidence of myocardial ischemia. 2. Normal left ventricular function. Assessment & Plan Claude Vidal is a 76-year-old man with past medical history significant for BPH, COPD, history of nephrolithiasis with multiple lithotripsies, and depression who initially presented to [facility] for ground level fall and was transferred to [facility] with the diagnosis of sepsis. He was found to have elevated CK, leukocytosis, elevated lactic acid and elevated creatinine, with CT chest, abdomen and pelvis revealing bilateral staghorn calculi with air. Urine analysis positive for UTI with cultures growing gram negative bacili. Blood cultures are positive for gram negative rods. He was initially treated at [facility] with IV levaquin. In [facility] he was started on vancomycin and zosyn and eventually just zosyn for UTI and bacteremia after MRSA swab came back negative. He is receiving IV fluids for suspected rhabdomyolysis, sepsis and acute kidney injury. Bacteremia, present on admission, improved. Blood cultures show pansensitive E. coli. Leukocytosis has improved since admission. - Ampicillin IV 2g q6h per Dr. Moraes. - Can switch to oral levofloxacin or ciprofloxacin on discharge per recommendation by Dr. Moraes. Complicated Urinary Tract Infection, present on admission, active Likely secondary to bilateral staghorn calculi. Urine cultures received from [facility] on 10/18/16 revealed gram negative bacilli. - Ampicillin 2g q6h per Dr. Moraes - Urology consultation recommended treatment for UTI with outpatient followup with urology Severe Protein Calorie Malnutrition, present on admission, active. Patient denies any recent weight loss and states he has always been thin. Extensive daily alcohol use - Encourage oral intake. - Nutrition consult appreciated. Recommending Ensure. - He is up over 6kg since admission - Phosphorus 2.1. will replace if 2.0 and lower. Acute kidney injury, present on admission, improved. Per [facility]'s notes patient's baseline creatinine is around 1.1 and on admission was 2.26. - Discontinue IV fluids today to see how patients body will react without fluids to assess his needs. He had orthostatic hypotension with systolic blood pressure 68. We will also have him in a recliner chair, so that his body isn't in a laying down position all day long. Rhabdomyolysis, present on admission, resolved. - Creatinine kinase at [facility] 1305 repeat on admission 3246. Now downtrending. - IV fluids held today to see how body reacts and assess needs. - CK normalized Ground-level fall, present on admission. - Patient denies loss of consciousness or hitting his head. Per nursing corroborates the story. - CT of the brain at [facility] showed no acute intracranial abnormality. - Physical therapy worked with patient 10/19/16 and patient walked 110 steps. Elevated troponin of unknown significance, present on admission, stable. Troponin I drawn at [facility] was 0.40. Repeat troponin T was 0.131. Likely due to demand ischemia. - Unclear etiology as EKG is unremarkable and shows normal sinus rhythm with no ST changes and patient denies any cardiac symptoms. - Echocardiogram results as above - Lexiscan results as above. Alcohol Withdrawl, present on admission, stable Per , patient has been drinking bottles of wine daily for at least 1.5 years. Unclear if patient has missed days or not. - Initiated CIWA protocol - Valium as needed for withdrawal symptoms. COPD, chronic - Continue home spiriva Depression, chronic - Continue Home Lexapro BPH - Continue home tamsulosin Disposition: Likely 1-2 days depending on patient clinical status. Patient requires discharge to SNF for rehab. GI Prophylaxis: Not indicated VTE Prophylaxis: Sub-Q Enoxaparin, SCDs Resuscitation Status: CPR: Attempt Resuscitation Kin Cabrera DO Oct 21, 2016 06:46
[2016-10-21] MEDS ORDERED: POLY17PO6 PO (11:41)
[2016-10-21] MEDS ORDERED: CIPR-198 PO (11:41)
[2016-10-21] MEDS ORDERED: Thiamine PO (11:45)
[2016-10-21] MEDS ORDERED: ONDA4VIA27 IVPUSH (11:45)
--- NOTE | 2016-10-21 11:59 | PCM.DIMED ---
Kin Cabrera DO 10/21/16 1159: Discharge Instructions Date of Service Oct 21, 2016 Dates of Hospitalization Oct 17, 2016 at 01:03 Discharge Diagnosis Discharge Diagnosis E. coli Bacteremia Complicated Urinary Tract Infection Severe Protein Calorie Malnutrition Acute kidney injury Rhabdomyolysis Ground-level fall Elevated troponin of unknown significance Alcohol use disorder COPD Depression, chronic BPH Medication Instructions Additional med instructions New Medication Ciprofloxacin 500 mg twice per day for 10 days - This is for your infection in your blood and in your kidneys Thiamine 100 mg one pill daily until reviewed by your primary care physician Continue home medications - Spiriva - Escitalopram - Fiber laxative - Tamsulosin Diet Discharge Diet: No restrictions Activity Discharge Activity: No restrictions (Recommend physical [facility] 3 times per [facility]) Call your provider Call your provider for: Fever or Chills, Shortness of breath, Chest pain, Vomitting, Excessive diarrhea Patient Instructions Patient Instructions New Medication Ciprofloxacin 500 mg twice per day for 10 days - This is for your infection in your blood and in your kidneys Thiamine 100 mg one pill daily until reviewed by your primary care physician Continue home medications - Spiriva - Escitalopram - Fiber laxative - Tamsulosin You need to follow up with your primary care physician in 1-2 weeks to discuss your hospital visit and about your weight You need to follow up with your urologist within 1 week and discuss your kidney stones for possible removal Make sure to continue eating and try and avoid alcohol. Follow-up Provider: Sarthak Rehman MD Follow-up with PCP in: 2 weeks (1-2 weeks) Provider: Michael Lucia MD Follow-up in: 1 week Jennifer Ferrara DO 10/21/16 1732: Discharge Instructions Attending's Statement The patient was seen and examined together with Dr. Cabrera on 10/21/16 and I agree with the history, exam and plan as outlined in the note above. Kin Cabrera DO Oct 21, 2016 11:59 Jennifer Ferrara DO Oct 21, 2016 17:32
[2016-10-21 12:10] VITALS: BP 123/54; PULSE 82; RESP 20; O2SAT 97
--- NOTE | 2016-10-21 12:10 | PCM.DC.MED ---
Discharge Summary Date of Service Oct 21, 2016 Dates of Hospitalization Date of Hospital Admission Oct 17, 2016 at 01:03 Date of Discharge: Oct 21, 2016 Providers: Admitting Physician: Rosaura Fang DO Primary Care Physician: Sarthak Rehman MD Attending Physician: Jennifer Ferrara DO Sheet Rock Finisher: Siva Cabrera DO Diagnosis at Time of Discharge Diagnosis at Time of Discharge E. coli Bacteremia Complicated Urinary Tract Infection Severe Protein Calorie Malnutrition Acute kidney injury Rhabdomyolysis Ground-level fall Elevated troponin of unknown significance Alcohol use disorder COPD Depression, chronic BPH Consultations Infectious Disease, Dr. Moraes Urology, Dr. Sawyer Procedures XRay, CTs & MRIs 10/17/16 PROCEDURE: CT CHEST, ABDOMEN AND PELVIS WITHOUT CONTRAST ([id number]) IMPRESSION: 1. Bilateral staghorn calculi, air in the collecting systems bilaterally suggestive of bilateral pyelitis in absence of recent instrumentation. Mild right hydronephrosis with no apparent obstructing calculi. Calcifications in the posterior bladder wall have been present previously. No associated soft tissue mass is identified. 2. Pulmonary emphysema and bilateral lower lobe atelectasis/infiltrate with small pleural effusions, appearing new since prior exam and possibly representing pneumonia. 3. 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 Dictated and approved by: Lucio Wilhelm M.D. on 10/17/2016 at 8:21 Imaging from [facility]: Head without contrast Impression: 1. No acute intracranial abnormality. 2. Mild chronic white matter small vessel ischemic changes and cerebral volume loss. Dictated by: Valentín Zheng M.D. on 10/16/16 at 2202 Chest 1 view Impression: 1. Chronic interstitial opacities redemonstrated without consolidation or other findings to suggest pneumonia. Dictated by: Valentín Zheng M.D. on 10/16/16 at 2204 ECG 12 Lead Normal sinus rhythm Cardiac Echo Impression 10/18/16 Interpretation Summary The study quality was technically difficult. The left ventricle is normal in size. The ejection fraction is estimated to be 45-50%. There is apical inferior wall hypokinesis. Inferolateral hypokinesis Borderline right ventricular enlargement. There is no significant valvular heart disease. Other Diagnostics CARDIAC STRESS: 10/19/16 FINDINGS: Raw data: There is good myocardial uptake of radiotracer. No significant motion artifacts. Left ventricle function: Gated images demonstrate normal left ventricular wall thickening. No segmental wall motion abnormalities. Left ventricle resting end diastolic volume is 48 mL. Left ventricle stress ejection fraction is 75%; normal range is above 45%. Myocardial perfusion: There is mildly decreased uptake within the inferior wall of the left ventricle extending from base to apex on both stress and rest imaging. There is otherwise normal distribution of activity in the right and left ventricular myocardium. No fixed or reversible perfusion defects. IMPRESSION: 1. Prone imaging could not be performed. Decreased uptake within the inferior wall of the left ventricle on both stress and rest imaging is present, presumably artifactual. There is no evidence of myocardial ischemia. 2. Normal left ventricular function. Brief History Claude Vidal is a 76-year-old man with past medical history significant for BPH, COPD, history of nephrolithiasis with multiple lithotripsies, and depression who initially presented to [facility] for ground level fall and was transferred to [facility] with the diagnosis of sepsis. He was found to have elevated CK, leukocytosis, elevated lactic acid and elevated creatinine, with CT chest, abdomen and pelvis revealing bilateral staghorn calculi with air. Urine analysis positive for UTI with cultures growing gram negative bacili (Per urine culture at [facility])(. Blood cultures are positive for E. coli. He was initially treated at [facility] with IV levaquin. In [facility] he was started on vancomycin and zosyn and eventually just zosyn for UTI and bacteremia after MRSA swab came back negative. He was eventually transitioned to IV ampicillin after sensitivities came back. He also received IV fluids for suspected rhabdomyolysis, sepsis and acute kidney injury. He did have positive troponins while at [facility] and here. Echocardiogram and Lexiscan were done here with results as above. Essentially, he did not have any evidence of cardiac ischemia. He also has a severe protein calorie malnutrition, for which we have actively been giving him ensure and encouraging oral intake. He has gained over 10 lbs while being here and his clinical status has improved. He is being discharged with ciprofloxacin 500 mg BID for 10 days per recommendation of infectious disease. Hospital Course Claude Vidal is a 76-year-old man with past medical history significant for BPH, COPD, history of nephrolithiasis with multiple lithotripsies, and depression who initially presented to [facility] for ground level fall and was transferred to [facility] with the diagnosis of sepsis, found to have complicated UTI and E. coli bacteremia. Hospital problem list outlined below. Bacteremia, present on admission, improved. Blood cultures show pansensitive E. coli. Leukocytosis has improved since admission. - oral ciprofloxacin on discharge per recommendation by Dr. Moraes. Complicated Urinary Tract Infection, present on admission, Improved Likely secondary to bilateral staghorn calculi. Urine cultures received from [facility] on 10/18/16 revealed gram negative bacilli. - oral ciprofloxacin on discharge per recommendation by Dr. Moraes. - Urology consultation recommended treatment for UTI with outpatient followup with urology Severe Protein Calorie Malnutrition, present on admission, active. Patient denies any recent weight loss and states he has always been thin. Extensive daily alcohol use - Encourage oral intake. Acute kidney injury, present on admission, improved. Per [facility]'s notes patient's baseline creatinine is around 1.1 and on admission was 2.26. Rhabdomyolysis, present on admission, resolved. - Creatinine kinase at [facility] 1305 repeat on admission 3246. Now downtrending. - CK normalized Ground-level fall, present on admission. - Patient denies loss of consciousness or hitting his head. - CT of the brain at [facility] showed no acute intracranial abnormality. - Physical therapy worked with patient 10/19/16 and patient walked 110 steps. Elevated troponin of unknown significance, present on admission, stable. Troponin I drawn at [facility] was 0.40. Repeat troponin T was 0.131. Likely due to demand ischemia. - Unclear etiology as EKG is unremarkable and shows normal sinus rhythm with no ST changes and patient denies any cardiac symptoms. - Echocardiogram results as above - Lexiscan results as above. Alcohol Withdrawl, present on admission, stable Per , patient has been drinking bottles of wine daily for at least 1.5 years. Unclear if patient has missed days or not. COPD, chronic - Continue home spiriva Depression, chronic - Continue Home Lexapro BPH - Continue home tamsulosin Exam Vital Signs (Last) Date Time Temp Pulse Resp B/P Pulse Ox O2 Delivery O2 Flow Rate FiO2 7/14/17 08:15 36.5 80 22 109/65 98 Room Air Exam General: Cachectic, frail man in no acute distress. HEENT: Temporal wasting. External ears without defect. anicteric sclerae, moist conjunctivae, and no lid lag. Neck: Supple with full range of motion. No jugular venous distension. No bruits. No lymphadenopathy or thyromegaly. Cardiovascular: Regular rate and rhythm with no murmurs, rubs, or gallops appreciated Pulmonary: Course breath sounds in bilateral bases. Normal respiratory effort with no use of accessory muscles. Abdomen: Bowel tones present. Scaphoid, nontender, nondistended. No hepatosplenomegaly or masses appreciated. Extremities: No clubbing, cyanosis, edema Skin: Normal temperature, turgor, and texture; no rash, ulcers, or subcutaneous nodules appreciated. Neurological: Cranial nerves grossly intact. Decreased muscle mass throughout body. Psychiatric: Normal mood and affect. Alert and oriented to person, place, and time. Test 10/17/16 03:00 10/17/16 09:32 10/17/16 11:32 10/17/16 15:35 Metamyelocytes % 1% (0-0) Hematology Comments Magnesium Level 1.7mg/dL (1.6-2.6) C-Reactive Protein 20.8mg/dL (0.0-0.5) Band Neutrophils % 5% (1-5) Lactic Acid Level 1.6mmol/L (0.4-2.0) Urine Color Straw (YELLOW) Urine Appearance Slightly cloudy Urine pH 5.5 (5.0-8.0) Urine Specific [place] 1.020 (1.003-1.035) Urine Protein 100mg/dL (NEG,TRACE) Urine Glucose (UA) Negativemg/dL (NEGATIVE) Urine Ketones Negativemg/dL (NEGATIVE) Urine Occult Blood Large (NEGATIVE) Urine Nitrite Negative (NEGATIVE) Urine Bilirubin Negative (NEGATIVE) Urine Urobilinogen Normalmg/dL (NORMAL) Urine Leukocyte Esterase Small (NEGATIVE) Urine RBC >50/hpf (0-2) Urine WBC 11-50/hpf (0-5) Urine Epithelial Cells Occasional/hpf (NONE-MOD) Urine Crystals None seen (NONE SEEN) Urine Bacteria Moderate/hpf (NONE-FEW) Urine Hyaline Casts None/lpf (NONE) Urine Granular Casts None seen (NONE SEEN) Urine Waxy Casts None seen (NONE SEEN) Urine Red Blood Cell Casts None seen (NONE SEEN) Urine White Blood Cell Casts None seen (NONE SEEN) Urine Mucus None seen (None Seen) Urine Trichomonas None seen (NONE SEEN) Urine Yeast None (NONE SEEN) Urinalysis Comment None Urine Culture Reflexed Indicated Troponin T 0.153ug/L (0.0-0.011) Test 10/18/16 04:15 10/19/16 04:00 10/21/16 03:50 Pro-B-Type Natriuretic Peptide 9609pg/mL (0-486) Vancomycin Level Trough 6.1mcg/mL Total Bilirubin 0.2mg/dL (0.0-1.2) Aspartate Amino Transf (AST/SGOT) 46U/L (0-50) Alanine Aminotransferase (ALT/SGPT) 40U/L (0-44) Alkaline Phosphatase 62U/L (25-160) Total Creatine Kinase 158U/L (21-232) Total Protein 3.9g/dL (6.4-8.4) Albumin 1.7g/dL (3.4-5.0) Procalcitonin 2.23ng/mL (0.00-0.08) White Blood Count 7.1th/mm3 (3.8-10.1) Red Blood Count 2.84mil/mm3 (4.40-5.80) Hemoglobin 9.6g/dL (13.8-17.2) Hematocrit 28.0% (41.0-50.0) Mean Corpuscular Volume 98.6fL (81-100) Mean Corpuscular Hemoglobin 33.8pg (27.0-35.0) Mean Corpuscular Hemoglobin Concent 34.3% (32.0-37.0) Red Cell Distribution Width 13.3% (12.3-15.4) Platelet Count 106bil/L (150-400) Neutrophils (%) (Auto) 78.8% (40-74) Lymphocytes (%) (Auto) 8.7% (14-46) Monocytes (%) (Auto) 9.9% (4-12) Eosinophils (%) (Auto) 2.1% (0-5) Basophils (%) (Auto) 0.1% (0-3) Sodium Level 143mEq/L (134-144) Potassium Level 4.1mEq/L (3.5-5.2) Chloride Level 111mEq/L (97-108) Carbon Dioxide Level 22mmol/L (18-29) Blood Urea Nitrogen 46mg/dL (8-27) Creatinine 1.39mg/dL (0.76-1.27) Estimat Glomerular Filtration Rate 53mL/min (>59) Glucose Level 90mg/dL (60-99) Calcium Level 7.7mg/dL (8.5-10.1) Phosphorus Level 2.1mg/dL (2.5-4.9) Microbiology Results AURY CULTURE BLOOD Final 10/19/16-623 Organism 1 ESCHERICHIA COLI GRAM STAIN RESULT GRAM NEGATIVE RODS BC BOTTLE Isolated from Aerobic Bottle of Set Drawn DATE CALLED: 10/17/16 TIME CALLED: 2054 CALLED BY: TYLER TYLER/DOCTOR: JAZZMINE/ANGELINA Pringle BC READ BACK YES TYPE OF DRAW PERIPHERAL DRAW TIME OF POSITIVITY 1999 ISOLATED FROM TWO OF TWO BOTTLES COLLECTED 10/17 1. ESCHERICHIA COLI M.I.C Interp --------- ------ * AMIKACIN <=2 S * AMPICILLIN <=2 S * AMPICILLIN/SULBACTAM <=2 S * CEFEPIME <=1 S * CEFOXITIN 8 S * CEFTRIAXONE <=1 S * CIPROFLOXACIN <=0.25 S * ERTAPENEM <=0.5 S * GENTAMICIN <=1 S * MEROPENEM <=0.25 S * TOBRAMYCIN <=1 S * TRIMETHOPRIM/SULFAMETHOXAZOLE <=20 S * PIPERACILLIN/TAZOBACTAM <=4 S Discharge Medications Discharge Medications ([Thiamine]) 100 MG TABLET 100 MG PO DAILY Prescribed by: SIVA CABRERA Cholecalciferol (Vitamin D3) (Vitamin D) 400 Unit Tablet 400 UNIT PO DAILY ( Reported) Ciprofloxacin (Ciprofloxacin) 500 Mg Tablet 500 MG PO BID Prescribed by: SIVA CABRERA Escitalopram-Expunged Drug, Do Not Renew! (Lexapro-Expunged Drug, Do Not Renew! ) 10 Mg Tablet 10 MG PO AM (Reported) Ondansetron (Ondansetron) 4 Mg Tablet 4 MG PO Q4H Prescribed by: SIVA A NIZAMUDDIN, Tamsulosin-Expunged Drug, Do Not Renew! (Flomax-Expunged Drug, Do Not Renew!) 0.4 Mg Capsule 0.4 MG PO DAILY (Reported) Tiotropium Br-Expunged Drug, Do Not Renew! (Spiriva-Expunged Drug, Do Not Renew! ) 18 Mcg/Puff Pack 18 MCG IH PRN (Reported) As needed Polyethylene Glycol 3350 (Miralax) 17 Gm Powd.pack 17 GM PO DAILY PRN PRN For Constipation Prescribed by: SIVA CABRERA, Additional med instructions New Medication Ciprofloxacin 500 mg twice per day for 10 days - This is for your infection in your blood and in your kidneys Thiamine 100 mg one pill daily until reviewed by your primary care physician Continue home medications - Spiriva - Escitalopram - Fiber laxative - Tamsulosin Followup Plan Discharge Diet: No restrictions Discharge Activity: No restrictions (Recommend physical therapy 3 times per week while at [facility]) Patient Instructions New Medication Ciprofloxacin 500 mg twice per day for 10 days - This is for your infection in your blood and in your kidneys Thiamine 100 mg one pill daily until reviewed by your primary care physician Continue home medications - Spiriva - Escitalopram - Fiber laxative - Tamsulosin You need to follow up with your primary care physician in 1-2 weeks to discuss your hospital visit and about your weight You need to follow up with your urologist within 1 week and discuss your kidney stones for possible removal Make sure to continue eating and try and avoid alcohol. Follow-up Provider: Sarthak Rehman MD Follow-up with PCP in: 2 weeks (1-2 weeks) Provider: Michael Lucia MD Follow-up in: 1 week Time spent Greater than 35 minutes Attending Statement The patient was seen and examined together with Dr. Cabrera on 10/21/16 and I agree with the history, exam and plan as outlined in the note above. copies to: Michael Lucia MD; Sarthak Rehman MD; Shayy Richard MD, Malik A DO Oct 21, 2016 12:10 Jennifer Ferrara DO Oct 21, 2016 18:07
[2016-10-21] MEDS ORDERED: ONDA-53 PO (12:20)
--- NOTE | 2016-10-21 12:46 | NUR ---
SNF Discharge: Spoke with Greg and he is working on setting up transportation and see what time he has available this afternoon. Faxed orders to [phone] and placed copy in the chart. Once final transport time is arranged I will updated BUSINESS TRAVEL CONSULTANT and RN. Updated BUSINESS TRAVEL CONSULTANT Addendum: 10/21/16 at 1332 by MELISSA WALTER CM Greg was able to arrange transportation at 1600. Updated MEAGAN
--- NOTE | 2016-10-21 13:05 | NUR ---
Social Work: Multidisciplinary Rounds/Discharge D: Pt discussed in am rounds. pt is medically stable for discharge to skilled rehab. [employer] spoke with Greg at [facility]. Pt has been accepted with Dr. Canales to follow. No concerns for pt's capacity for self care noted by team. EMR reviewed; pt admitted and placed on CIWA protocol as pt's had previously mentioned pt consumes a bottle of wine daily. Pt scored 0 on the CIWA scale. [employer]S will not see the patient to complete CD assessment as order was never placed by MD. [employer]S met with the patient at bedside to confirm discharge plan to [facility]. Pt agrees with this plan and is requesting C[employer]S contact his to notify her of this. [employer] spoke with the patient's , Amarilis, to notify of pt's discharge. She is aware and will follow up with the patient at [facility]. She expresses no concerns about discharge and agrees with this plan. [facility] has faxed discharge ppw and is coordinating transportation with [facility]. A: Pt who will require skilled rehab at discharge. P: Pt to discharge to [facility] with Dr. Canales to follow. [facility] to update transportation time. MEAGAN Goodrich
--- NOTE | 2016-10-21 18:14 | NUR ---
Discharge Patient left unit via [facility] at 1630. IV DC'd intact, tele removed, all personal belongings with patient. Body sheet completed, transfer packet with [facility] employee. Report called to Jose at [facility].
== END 2016-10-21 16:50 | DRG 690 ==
LOC: PCC 10-17 01:03
PROVIDERS: ADMIT Internal Medicine; ATTEND Internal Medicine
DX: N39.0 Urinary tract infection, site not specified (principal); N17.9 Acute kidney failure, unspecified; M62.82 Rhabdomyolysis; E46 Unspecified protein-calorie malnutrition; Z68.1 Body mass index [BMI] 19.9 or less, adult; R64 Cachexia; F10.239 Alcohol dependence with withdrawal, unspecified; I24.8 Other forms of acute ischemic heart disease; R78.81 Bacteremia; B96.20 Unspecified Escherichia coli [E. coli] as the cause of diseases classified elsewhere; N20.0 Calculus of kidney; K76.9 Liver disease, unspecified; B99.8 Other infectious disease; N13.6 Pyonephrosis; J44.9 Chronic obstructive pulmonary disease, unspecified; F32.9 Major depressive disorder, single episode, unspecified; N40.0 Benign prostatic hyperplasia without lower urinary tract symptoms; Z86.711 Personal history of pulmonary embolism; W18.30XA Fall on same level, unspecified, initial encounter; Y93.9 Activity, unspecified; Y92.9 Unspecified place or not applicable